=== PATIENT | female | born 1945 | race Caucasian/White ===

== ENCOUNTER 2020-02-11 15:44 | Outpatient (CLI) | payer MEDICARE, SELFPAY ==
--- NOTE | ~2020-02-11 | CT_ITS ---
EXAMINATION: CT brain wo con DATE: 02/11/2020 16:14 INDICATION: Traumatic injury of head TECHNIQUE: Computed tomography (CT) of the head was performed without intravenous contrast. The mA wa s adjusted according to patient size. Iterative reconstruction technique was employed. Exam dose: 60 5.33 mGy-cm total exam DLP. COMPARISON: 09/04/2018 CT brain FINDINGS: Vertebral artery and bilateral carotid siphon internal carotid artery calcifications. There is nonspecific diminished attenuation of the cerebral white matter, likely due to chronic small vessel ischemic changes. There is central and cortical cerebral atrophy and cerebellar atrophy. No intracranial mass lesion or hemorrhage or cerebrovascular accident is evident. No midline shift or mass effect. No subdural or epidural hematoma. No fracture or bone destruction of the cranial vault. IMPRESSION: Cerebral atherosclerosis and chronic small vessel ischemic changes of the cerebral white matter Volume loss of the cerebrum and cerebellum, which is not substantially different than on 09/04/2018 No acute intracranial finding Reviewed, dictated and finalized at [facility]. Reviewed, dictated and finalized at [facility]. IMPRESSION: Cerebral atherosclerosis and chronic small vessel ischemic changes of the cerebral white matter Volume loss of the cerebrum and cerebellum, which is not substantially differen t than on 09/04/2018 No acute intracranial finding
== END 2020-02-11 15:45 | disposition home or self-care (01) ==
PROVIDERS: PCP Internal Medicine; Visit Provider Internal Medicine
DX: S09.90XA Unspecified injury of head, initial encounter (principal); R47.89 Other speech disturbances; I67.2 Cerebral atherosclerosis
CPT/HCPCS: 70450

== ENCOUNTER 2020-03-09 12:43 | Observation (INO) | payer MEDICARE, SELFPAY ==
[2020-03-09] VITALS (9 sets, daily range): BP systolic 119–152; BP diastolic 53–89; PULSE 67–78; RESP 14–20; TEMP 36.4–37.1; O2SAT 95–100; BMI 18.7
--- NOTE | ~2020-03-09 | CT_ITS ---
EXAMINATION: CT brain wo con DATE: 03/09/2020 16:00 INDICATION: Increasing confusion, lethargy, weakness. Altered mental state. TECHNIQUE: Computed tomography (CT) of the head was performed without intravenous contrast. The mA wa s adjusted according to patient size. Iterative reconstruction technique was employed. Exam dose: 60 5.33 mGy-cm total exam DLP. COMPARISON: 02/11/2020 CT abdomen noncontrast brain examination FINDINGS: Again noted are vertebral and bilateral carotid siphon and supraclinoid internal carotid ar connie calcifications. There is nonspecific diminished attenuation of the cerebral white matter, likely due to chronic small vessel ischemic changes. There is central and cortical cerebral atrophy and cerebellar atrophy. No intracranial mass lesion or hemorrhage or cerebrovascular accident. No midline shift or mass effec t. No subdural or epidural hematoma. No fracture or bone destruction of the cranial vault. Included paranasal sinuses and mastoid air cell s are normally developed and aerated. IMPRESSION: Cerebral atherosclerosis No acute intracranial finding Reviewed, dictated and finalized at [facility]. Reviewed, dictated and finalized at [facility].
--- NOTE | ~2020-03-09 | XR_ITS ---
EXAMINATION: XR chest 2V DATE: 03/09/2020 16:13 INDICATION: Transient alteration of awareness TECHNIQUE: AP and lateral views of the chest are obtained. COMPARISON: 07/11/2018 FINDINGS: The lungs are free of acute opacities. There is no pleural effusion or pneumothorax. The ca rdiomediastinal silhouette is normal. There are bridging osteophytes at multiple levels in the spine, consistent with diffuse idiopathic skeletal hyperostosis (DISH). Changes of mesh ventral hernia repa ir are noted in the upper abdomen. IMPRESSION: 1. No acute cardiopulmonary abnormality. Reviewed, dictated and finalized at location [facility].
--- NOTE | 2020-03-09 12:54 | ECG_ITS ---
Measurements Intervals [place] Rate: 69 P: 54 IN: 169 QRS: -34 QRSD: 108 T: -11 QT: 388 QTc: 417 Interpretive Statements SINUS RHYTHM LEFT AXIS DEVIATION DELAYED PRECORDIAL R/S TRANSITION BORDERLINE T WAVE ABNORMALITY- INFERIOR LEADS BASELINE ARTIFACT- I, II, III, AVR, AVL, AVF, V1-V2 BORDERLINE ECG Electronically Signed On 03-09-2020 14:49:57 CDT by Ambrocio Nicole D.O.
[2020-03-09 13:15] LABS: Basophils Percent Auto 0.6 % (0.2-1.2); Eosinophils Absolute Auto 0.1 K/mm3 (0-0.3); Eosinophils Percent Auto 1.2 % (0-4.4); Hematocrit 43.8 % (37.0-47.0); Hemoglobin 14.7 g/dL (12.0-15.0); Immature Granulocyte Absolute 0.03 K/mm3 (0.00-0.031); Immature Granulocyte Percent A 0.5 % (0-0.5); Lymphocytes Absolute Auto 2.39 K/mm3 (0.9-3.2); Lymphocytes Percent Auto 36.7 % (18.3-44.2); Mean Corpuscular HGB Conc 33.6 g/dl (32-36); Mean Corpuscular Hemoglobin 33.9 pg (26-34); Mean Corpuscular Volume 101.2 fl (80-100); Mean Platelet Volume 10.3 fl (7.4-10.4); Monocytes Absolute Auto 0.4 K/mm3 (0.1-0.6); Monocytes Percent Auto 6.4 % (2.6-8.5); Neutrophils Absolute Auto 3.6 K/mm3 (1.3-6.7); Neutrophils Percent Auto 54.6 % (45.5-73.1); Platelet Count Result 195 k/mm3 (150-375); Red Blood Count 4.33 M/mm3 (4.2-5.4); Red Cell Distribution Width 12.9 % (11.5-14.5); White Blood Count 6.5 K/mm3 (4.5-10.0)
[2020-03-09 13:26] LABS: Add Urine Microscopic? YES; Appearance Urine Clear (Clear); Bilirubin Urine Negative (Negative); Blood Urine Negative (Negative); Color Urine Yellow (Yellow); Glucose Urine UA 1+ mg/dL (Negative); Ketones Urine Negative (Negative); Leukocyte Esterase Ur Negative LEU/UL (Negative); Mucus Urine Rare /lpf; Nitrate Urine Negative (Negative); Protein Urine Negative (Negative); RBC Urine 0-2 /hpf (0-2); Specific Grav Ur 1.016 (1.001-1.035); Squamous Epithelial Cell Urine Rare /hpf (Few); Urobilinogen Urine Negative mg/dL (<2.0); WBC Urine 0-3 /hpf
--- NOTE | 2020-03-09 13:54 | PC.NURSE ---
Patient is awake and alert. She is able to tell me her name, birthday, and that she is at a hospital at this time. She is not oriented to day or date. She is unable to answer questions as to last time eating, last time using bathroom, etc. Patient was brought in by a neighbor who tells me that she has been staying with the patient since Monday. She reports that, during this time, the patient has been having some increasing weakness and confusion, decreased PO intake, and has been sleeping for long periods of time. She reports that the patient was unable to comprehend how to use a walker. Additionally she tells me that the patient is unable to care for herself or provided for her basic daily requirements by herself. During assessment it was noted that the patient was having difficulty with simple directions. She was unable to understand what to do when instructed to straighten her arms. When checking nursing home manager strength, multiple attempts were required before patient understood what to do and she was unable to follow directions to check leg strength. Patient was placed on bed alarm because her friend did report that the patient likes to wander around .
[2020-03-09 14:23] LABS: Alanine Aminotransferase 7 U/L (4-35); Albumin Level 4.4 g/dL (3.5-5.1); Alkaline Phosphatase 56 U/L (38-126); Aspartate Amino Transferase 23 U/L (14-36); Bilirubin,Total 0.6 mg/dL (0.2-1.3); Blood Urea Nitrogen 13 mg/dL (7-17); Calcium 9.6 mg/dL (8.4-10.2); Carbon Dioxide 32 mmol/L (22-30); Chloride 99 mmol/L (98-107); Estimated CRCL calculation 40 ml/min; Estimated Glomerular Filt Rate > 60; Glucose 76 mg/dL (65-105); Potassium 4.4 mmol/L (3.4-5.0); Sodium 138 mmol/L (137-145)
--- NOTE | 2020-03-09 15:45 | ED.AMS ---
HPI - Altered Mental Status General Chief Complaint: Altered Mental Status Stated Complaint: Not Eating or Drinking Time Seen by Provider: 03/09/20 15:37 Source: patient Mode of arrival: EMS Limitations: altered mental status History of Present Illness HPI narrative: This patient is a 74 year old female who has been referred to ED by PCP Dr. Charles due to altered mental status. She has history of dementia and she has been at home by herself due to 's hospitalization. It is reported that patient is more confused than usual and she has not eaten since yesterday. Patient is oriented to self and she has no complaints. MD complaint: altered mental status Related Data Home Medications Medication Instructions Recorded Confirmed apixaban [Eliquis] mg 03/09/20 lamotrigine 03/09/20 levothyroxine 03/09/20 nortriptyline 03/09/20 pravastatin 03/09/20 valproic acid PO 03/09/20 Allergies Allergy/AdvReac Type Severity Reaction Status Date / Time No Known Allergies Allergy Unknown Verified 03/09/20 13:32 Review of Systems Review of Systems: All systems reviewed & are unremarkable except as noted in HPI and below Constitutional: Constitutional: Reports chills and Denies fever(s) Cardiovascular: Cardiovascular: Denies chest pain Respiratory: Respiratory: Denies cough and Denies dyspnea Gastrointestinal: Gastrointestinal: Denies abdominal pain, Denies nausea and Denies vomiting Neurologic: Denies headache(s) and Denies weakness PMFSH Past Medical History Medical History (Updated 03/09/20 @ 20:57 by Nayeli Sin MD) Hypertension Hypothyroid TIA (transient ischemic attack) Surgical History Surgical History (Updated 03/09/20 @ 20:56 by Nayeli Sin MD) History of bilateral knee replacement Hx of appendectomy Hx of cholecystectomy Hx of tonsillectomy Social History Social History (Updated 03/09/20 @ 20:56 by Nayeli Sin MD) Additional living arrangements comments: normally lives with but he is hospitalized. Gender identity (if verbalized by the patient): Female Exam Narrative: Exam Narrative: GENERAL: Well-appearing, well-nourished, and in no acute distress. HEAD: Normocephalic, atraumatic EYES: PERRLA and EOMI, conjunctiva clear without discharge EARS: TM's clear bilaterally without erythema or dullness NOSE: Nares clear, no rhinorrhea or epistaxis THROAT:Mucous membranes moist, Oropharynx normal without erythema, exudate, peritonsillar swelling or fluctuance NECK: Supple, without lymphadenopathy or mass RESPIRATORY: No respiratory distress, Airway patent, Respirations non-labored, Clear to auscultation without rales, rhonchi or wheeze HEART: Regular rate and rhythm. No murmur heard. Normal peripheral pulses. ABDOMEN: Soft, nontender, nondistended, normal active bowel sounds. No masses. No rebound or guarding, No organomegaly. EXTREMITIES: No edema, normal strength with full range of motion. SKIN: Warm, dry, normal color without rash NEURO: Alert and oriented to self. CN 2-12 grossly intact. No focal deficits. PSYCH: Normal mood and affect. Course Reevaluation(s) Reevaluation #1: Nursing staff states patient's neighbor called her PCP . Patient's is hospitalized and he normally cares for her. Patient seems to be unable to care for her self at home. Date: 03/09/20 Time: 17:13 Consultations Consultation #1: I have discussed with Tanya Salcido who accepts patient to service observation under Dr. Ayoub. Date: 03/09/20 Time: 17:14 Vital Signs Vital signs: Vital Signs Temperature 98.8 F 03/09/20 12:49 Pulse Rate 73 03/09/20 12:49 Respiratory Rate 16 03/09/20 12:49 Blood Pressure 152/74 H 03/09/20 12:49 Pulse Oximetry 97 03/09/20 12:49 Temperature 98.2 F 03/09/20 19:26 Pulse Rate 70 03/09/20 19:26 Respiratory Rate 16 03/09/20 19:26 Blood Pressure 133/53 L 03/09/20 19:26 Pulse Oximetry 100 03/09/20 1
--- NOTE | 2020-03-09 17:40 | PC.NURSE ---
Meal order placed for regular diet.
--- NOTE | 2020-03-09 18:50 | ADMGEN ---
This patient, Mouna Johnson, was admitted to Medical Room 346-. Patient/family oriented to hospital policies and general routines including ID bracelet, bed and alarms, visiting hours, pain management, procedures, bathroom and other care routines, personal items, smoking policy, room service/diet, and visiting hours. Valuables list has been completed. Information on how to activate the Rapid Response Team has been discussed. Patient/Family are encouraged to report perceived risks to care and to ask questions if they do not understand what they are told or what they should do.
--- NOTE | 2020-03-09 20:30 | PM.IMHP ---
H&P: HPI History of Present Illness Chief complaint: Confusion Narrative: Mouna Johnson is a 74-year-old female with dementia, seizures, hypothyroidism, and history of pulmonary embolism on apixaban who presented to the emergency department earlier this afternoon from home for evaluation of increasing confusion. She is alert oriented to self only and can provide no meaningful history. As such, all of this history is obtained via a review of her electronic medical record and discussions with her . Her has been hospitalized, and he is apparently has the patient's primary residential subcontractor. They do have somebody staying with the patient at home, who reports that over the past 24 hours the patient has not eaten a meal and has seemed increasingly confused and weak. Workup in the emergency department was relatively unremarkable, but unfortunately the patient does not have anybody to care for her at home and thus she is being admitted for respite care. At the time my evaluation, she is alert and pleasant. She has no complaints. Review of Systems Review of Systems: Narrative: Twelve systems were reviewed but are very limited given her severe short-term memory loss. She denies pain. She has not had fever or chills. No chest pain or shortness of breath. No nausea or vomiting. No abdominal pain. She denies dysuria. Except as documented, all other systems were reviewed and are negative. 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 She may take lamotrigine and valproic acid for her dementia. TIA (transient ischemic attack) Surgical History Surgical History (Updated 03/09/20 @ 22:20 by Tanya Salcido PA-C) History of appendectomy History of bilateral knee replacement History of cholecystectomy History of hysterectomy (~1988) History of inguinal hernia repair (~2006) History of tonsillectomy Status post gastroplasty Darya-Belsey procedure many years ago. Family History Family History (Updated 03/09/20 @ 22:21 by Tanya Salcido PA-C) Other Acute myocardial infarction Congestive heart failure Hypertension Social History Social History (Updated 03/09/20 @ 22:23 by Tanya Salcido PA-C) Social History: The patient is and lives with her in [place]. They do have a residential subcontractor that comes to the home sometimes. They are in the process of attempting to sell their home to move to assisted living. They have 1 daughter, Yadi Barreto, who lives in [place]. Yadi is her healthcare power of commercial attorney, and the patient is listed as a full code. 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 No alcohol, tobacco, or drug use. Additional living arrangements comments: Meds Home Medications and Allergies Home Medications Medication Instructions Recorded Confirmed Type apixaban [Eliquis] mg 03/09/20 History lamotrigine 03/09/20 History levothyroxine 03/09/20 History nortriptyline 03/09/20 History pravastatin 03/09/20 History valproic acid PO 03/09/20 History Allergies Allergy/AdvReac Type Severity Reaction Status Date / Time No Known Allergies Allergy Unknown Verified 03/09/20 13:32 Vital Signs Vital Signs - 24 hr 03/09/20 12:49 03/09/20 13:14 03/09/20 13:48 Temperature 98.8 F 97.6 F Pulse Rate 73 70 Respiratory Rate 16 15 16 Blood Pressure 152/74 H 143/70 H Pulse Oximetry 97 98 99 03/09/20 14:05 03/09/20 16:53 03/09/20 18:30 Temperature 97.9 F Pulse Rate 67 78 77 Respiratory Rate 14 20 18 Blood Pressure 136/89 146/71 H 119/63 Pulse Oximetry 96 95 99 03/09/20 19:26
[2020-03-10] VITALS: PULSE 61
[2020-03-10 04:00] VITALS: PULSE 61
[2020-03-10 09:00] VITALS: PULSE 77
[2020-03-10 09:30] LABS: Thyroid Stimulating Hormone Reflex > 100.000 uIU/mL (0.465-4.68)
[2020-03-10 09:52] LABS: Blood Urea Nitrogen 13 mg/dL (7-17); Calcium 9.4 mg/dL (8.4-10.2); Carbon Dioxide 31 mmol/L (22-30); Chloride 100 mmol/L (98-107); Estimated CRCL calculation 38 ml/min; Estimated Glomerular Filt Rate > 60; Glucose 72 mg/dL (65-105); Potassium 4.3 mmol/L (3.4-5.0); Sodium 137 mmol/L (137-145)
[2020-03-10 10:01] LABS: Free T4 Free Thyroxine Reflex 0.84 ng/dL (0.78-2.19)
--- NOTE | 2020-03-10 10:48 | PCSTNOTE ---
Please refer to the Bedside Swallow Evaluation in the EMR.
[2020-03-10 13:00] VITALS: PULSE 70
[2020-03-10 13:45] LABS: Total Triiodothyronine (T3) 0.87 NG/ML (0.97-1.69)
[2020-03-10 14:10] VITALS: BP 134/63; PULSE 74; RESP 14; TEMP 37.1; O2SAT 98
--- NOTE | 2020-03-10 15:34 | PM.DS ---
DS: Admitting Diagnosis Admitting Diagnosis Admitting Diagnosis: Alzheimer's disease, unspecified DS: Discharge Diagnosis Discharge Diagnosis (1) Alzheimer's dementia: Code(s): G30.9 - Alzheimer's disease, unspecified; F02.80 - Dementia in other diseases classified elsewhere without behavioral disturbance Status: Acute Assessment and Plan: Reports of increasing confusion, likely related to dementia. Patient is essentially being admitted for respite care. No evidence on labs or imaging to suggest underlying infection. Metabolic panel is also unremarkable. (2) Current use of prison anticoagulation: Code(s): Z79.01 - jail (current) use of anticoagulants Status: Acute Assessment and Plan: Due to history of DVT and pulmonary embolism. Continue apixaban. (3) Seizure: Code(s): R56.9 - Unspecified convulsions Status: Acute Assessment and Plan: Continue lamotrigine and valproic acid. History of seizures is poorly documented her medical records, and she may take these for behavioral disturbances. (4) Hypothyroidism: Code(s): E03.9 - Hypothyroidism, unspecified Status: Acute Assessment and Plan: Continue levothyroxine. Check TSH. DS: Summary Hospital Course Reason for hospitalization: Mouna Johnson is a 74-year-old female with dementia, seizures, hypothyroidism, and history of pulmonary embolism on apixaban who presented to the emergency department earlier this afternoon from home for evaluation of increasing confusion. She is alert oriented to self only and can provide no meaningful history. As such, all of this history is obtained via a review of her electronic medical record and discussions with her . Her has been hospitalized, and he is apparently has the patient's primary draw hand. They do have somebody staying with the patient at home, who reports that over the past 24 hours the patient has not eaten a meal and has seemed increasingly confused and weak. Workup in the emergency department was relatively unremarkable, but unfortunately the patient does not have anybody to care for her at home and thus she is being admitted for respite care. At the time my evaluation, she is alert and pleasant. She has no complaints. Hospital Course: Reports of increasing confusion, likely related to dementia. Patient is essentially being admitted for respite care. No evidence on labs or imaging to suggest underlying infection. Metabolic panel is also unremarkable. Patient is beind discharged home to under comfort care Status at Discharge Functional status at discharge: bed bound Overall status at discharge: patient is not back to baseline Time Spent with Patient Time attestation: Total time spent providing and/or coordinating discharge services: Time spent: Less than 30 minutes Exam Const: General: no acute distress and uncomfortable HENMT: General nose exam: Normal nares present Eyes: General: appearance normal, both eyes and all related structures Sclera: sclerae normal Neck: Neck: supple Resp: Effort & Inspection: normal respiratory effort Auscultation: clear to auscultation bilaterally Cardio: Rate: regular rate Rhythm: regular rhythm GI: GI Palp: Yes Soft to palpation Skin: General skin exam: normal color Neuro: Other: Severe dementia Extrem: General: normal to inspection Psych: Other: Severe dementia DS: Data Data Completed and Pending Labs on day of discharge: Labs from last 24 hours 03/10/20 03/10/20 03/10/20 07:11 07:11 07:11 Sodium Potassium Chloride Carbon Dioxide BUN Creatinine Estim Creat Clear Calc Estimated GFR Glucose Calcium TSH (Reflex)
[2020-03-10 17:00] VITALS: PULSE 75
== END 2020-03-10 17:18 | disposition home health service (06) ==
LOC: ANHED 17:17 → ANH3MED 18:09
PROVIDERS: Emergency Medicine; Physician Assistant; Admitting Provider Family Medicine; Emergency Provider General Practice; PCP Internal Medicine; Visit Provider Family Medicine
DX: G30.9 Alzheimer's disease, unspecified (principal); F02.80 Dementia in other diseases classified elsewhere, unspecified severity, without behavioral disturbance, psychotic disturbance, mood disturbance, and anxiety; R56.9 Unspecified convulsions; E03.9 Hypothyroidism, unspecified; I10 Essential (primary) hypertension; F41.8 Other specified anxiety disorders; K21.9 Gastro-esophageal reflux disease without esophagitis; E78.5 Hyperlipidemia, unspecified; M19.90 Unspecified osteoarthritis, unspecified site; Z75.5 Holiday relief care; Z79.01 Long term (current) use of anticoagulants; Z79.899 Other long term (current) drug therapy; Z86.711 Personal history of pulmonary embolism; Z86.718 Personal history of other venous thrombosis and embolism; Z86.73 Personal history of transient ischemic attack (TIA), and cerebral infarction without residual deficits; Z96.653 Presence of artificial knee joint, bilateral
CPT/HCPCS: 36415; 51701; 70450; 71046; 80048; 80053; 81001; 84439; 84443; 84480; 85025; 92610; 93005; 99285; G0378

== ENCOUNTER 2020-10-26 12:07 | Emergency (ER) | payer MEDICARE, SELFPAY ==
--- NOTE | ~2020-10-26 | XR_ITS ---
XR foot RT min 3V DATE: 10/26/2020 12:37 INDICATION: Stubbed toes 3-4 days ago. Right foot distal metatarsal and toe pain TECHNIQUE: 4 views COMPARISON: None FINDINGS: Diffuse osteopenia. There is prominent posterior calcaneal enthesopathy. No fracture or dislocation, periosteal reaction or bone destruction is detected. There is mild joint space narrowing at the first metatarsophalangeal joint. Metatarsal artery calcifications are noted. IMPRESSION: No fracture is detected Reviewed, dictated and finalized at location [facility]. [employer] IMPRESSION: No fracture is detected
[2020-10-26 12:17] VITALS: BP 129/63; PULSE 64; RESP 16; TEMP 36.4; O2SAT 100
--- NOTE | 2020-10-26 12:36 | ED.LOWEXIN ---
HPI - Extremity Injury (Lower) General Chief Complaint: Extremity Injury, Lower Stated Complaint: right foot pain Source: patient and RN notes reviewed Limitations: no limitations History of Present Illness HPI Narrative: The dementia patient,who walks in her home and brought in by video manager, presents with foot pain. Consent given by spouse at home, and caregiver,note that about a half a week ago the patient stubbed her foot on home furnishings and complains of distal middle metatarsal pain that is mild, worse with motion, better at rest. She was seen and released by pattern clerk and she desire an x-ray ; no bleeding, deformity, and initial swelling has improved [ she is on eliquis]. Related Data Home Medications Medication Instructions Recorded Confirmed apixaban [Eliquis] 2.5 mg PO BID 10/26/20 10/26/20 lamotrigine 100 mg PO DAILY 10/26/20 10/26/20 levothyroxine 75 mcg PO DAILY 10/26/20 10/26/20 pravastatin 40 mg PO DAILY 10/26/20 10/26/20 valproic acid 250 mg PO BID 10/26/20 10/26/20 Allergies Allergy/AdvReac Type Severity Reaction Status Date / Time No Known Allergies Allergy Verified 10/26/20 12:31 Review of Systems Review of Systems: Narrative: General/Constitutional: No weight loss,fever Eyes: N0: Redness,discharge Ears/Nose/Throat: No: Epistaxis,ear discharge Respiratory: Denies: Hemoptysis Gastrointestinal: No Vomiting, Bleeding-rectal Skin: No Lumps, eruption Neurologic: No Focal Weakness,Sz Hematologic: Denies: Petechiae/Purpura Psychiatric: No: Suicida ideationl All Other Systems: Reviewed and Negative PMFSH Comments At time of signature, agree with nursing past medical, surgical, social and family history. There is no relevant family history pertinent to the presenting complaint Exam Narrative: Exam Narrative: General Appearance: Aged/ mildly demented appearing,, No distress, Conjunctiva clear Ears: External ear normal, Auditory canal normal Nose: Normal nose, Nares clear Mouth/Throat: Normal appearing, Normal lips, Supple Respiratory: Airway patent, No respiratory distress Skin: Warm, Dry, Normal color; bilateral dependent edema L>>>R MS ankle: Normal strength (mostly intact, limited flexion/extension by pain), Tenderness (distal metatarsals & laterally, with mild decreased ROM), scant swelling, Other (no anterior drawer, no collateral laxity, no Achilles tenderness, no fifth MT tenderness) Neurological: Alert and awake ,, Normal affect Course Course Emergency Course: Films visualized, interpreted by radiologist, agree, age-related normal -see report Vital Signs Vital signs: Vital Signs Temperature 97.5 F L 10/26/20 12:17 Pulse Rate 64 10/26/20 12:17 Respiratory Rate 16 10/26/20 12:17 Blood Pressure 129/63 10/26/20 12:17 Pulse Oximetry 100 10/26/20 12:17 Temperature 97.5 F L 10/26/20 12:17 Pulse Rate 64 10/26/20 12:17 Respiratory Rate 16 10/26/20 12:17 Blood Pressure 129/63 10/26/20 12:17 Pulse Oximetry 100 10/26/20 12:17 Discharge Plan Discharge Clinical Impression: Contusion of foot, right Qualifiers: Encounter type: initial encounter Qualified Code(s): S90.31XA - Contusion of right foot, initial encounter Right ankle sprain Qualifiers: Encounter type: initial encounter Involved ligament of ankle: unspecified ligament Qualified Code(s): S93.401A - Sprain of unspecified ligament of right ankle, initial encounter Degenerative arthritis of ankle Qualifiers: Osteoarthritis type: primary Laterality: unspecified laterality Qualified Code(s): M19.079 - Primary osteoarthritis, unspecified ankle and foot Patient Disposition: Home, Self-Care Condition: Improved Instructions: Ankle Sprain (ED) Additional Instructions: You may take your home pain medicines, like Tylenol Wear Geoff/ wraps as discussed Prescriptions: No Action pravastatin 40 mg tablet 40 mg PO DAILY RF: 0 valproic acid 250 mg capsule 250 mg PO BID R
== END 2020-10-26 13:07 | disposition home or self-care (01) ==
PROVIDERS: Emergency Provider Emergency Medicine
DX: S90.31XA Contusion of right foot, initial encounter (principal); W22.03XA Walked into furniture, initial encounter; S93.401A Sprain of unspecified ligament of right ankle, initial encounter; M19.079 Primary osteoarthritis, unspecified ankle and foot; E78.00 Pure hypercholesterolemia, unspecified; E03.9 Hypothyroidism, unspecified; F03.90 Unspecified dementia, unspecified severity, without behavioral disturbance, psychotic disturbance, mood disturbance, and anxiety
CPT/HCPCS: 73630; 99213; G0463

== ENCOUNTER 2020-10-27 15:59 | Emergency (ER) | payer MEDICARE, SELFPAY ==
--- NOTE | ~2020-10-27 | US_ITS ---
EXAMINATION: US venous doppler [facility] DATE: 10/27/2020 16:42 INDICATION: Left lower limb swelling. TECHNIQUE: Grayscale ultrasound images without and with compression and Doppler ultrasound images of the left lower extremity veins were obtained. COMPARISON: None. FINDINGS: The visualized portions of left common femoral vein, profunda (deep) femoral vein, femoral vein, popl iteal vein, peroneal veins, posterior tibial veins, and greater saphenous vein outflow are patent. IMPRESSION: 1. No deep venous thrombosis. Reviewed, dictated and finalized at location A. INSPECTOR
[2020-10-27 16:02] VITALS: BP 158/80; PULSE 63; RESP 18; TEMP 36.7; O2SAT 100
--- NOTE | 2020-10-27 16:10 | ED.EXTPRO ---
HPI - Extremity Problem General Chief complaint: Extremity Problem,Nontraumatic Stated complaint: swelling to legs Time Seen by Provider: 10/27/20 16:02 Source: patient and family Mode of arrival: ambulatory Limitations: no limitations History of Present Illness HPI Narrative: A 75-year-old female presents to the emergency department today complaining of extremity swelling in her left lower extremity. Patient was recently seen at an outside urgent care center where she actually was treated for a sprain of the ipsilateral ankle. There they noticed that she was having swelling in this extremity. It has been there for quite some time. Patient does note that it is sometimes bothersome. She does take Eliquis for history of DVT but cannot recall when or where that last DVT was. Related Data Home Medications Medication Instructions Recorded Confirmed Eliquis 2.5 mg PO DAILY 03/09/20 03/10/20 lamotrigine 100 mg PO DAILY 03/09/20 03/10/20 levothyroxine 75 mcg PO DAILY 03/09/20 03/10/20 pravastatin 40 mg PO DAILY 03/09/20 03/10/20 valproic acid 250 mg PO BID 03/09/20 03/10/20 Allergies Allergy/AdvReac Type Severity Reaction Status Date / Time No Known Allergies Allergy Unknown Verified 10/27/20 16:16 Review of Systems Review of Systems: Narrative: CONSTITUTIONAL: Denies fever, chills, or sweats. EYES: Denies visual changes, redness, or discharge. ENT: Denies rhinorrhea, congestion, sore throat, or otalgia. CARDIOVASCULAR: Denies chest pain, palpitations, or edema. RESPIRATORY: Denies cough or dyspnea. GASTROINTESTINAL: Denies abdominal pain, nausea, vomiting, or diarrhea. GENITOURINARY: Denies dysuria or hematuria. SKIN: Denies rash or itching. MUSCULOSKELETAL: Denies back pain, joint pain, or myalgia. Endorses swelling in the left lower extremity NEUROLOGIC: Denies headache, numbness, dizziness, or weakness. PSYCHIATRIC: Denies anxiety or depression. All systems reviewed & are unremarkable except as noted in HPI and below PMFSH Past Medical History Medical History Alzheimer's dementia Current use of fci anticoagulation Depression with anxiety DVT (deep venous thrombosis) (~2005) Essential hypertension GERD (gastroesophageal reflux disease) Hyperlipidemia Hypothyroidism Osteoarthritis Pulmonary embolism (~2013) Seizure This is poorly documented in her medical record. She may take lamotrigine and valproic acid for her dementia. TIA (transient ischemic attack) Surgical History Surgical History History of appendectomy History of bilateral knee replacement History of cholecystectomy History of hysterectomy (~1988) History of inguinal hernia repair (~2006) History of tonsillectomy Status post gastroplasty Darya-Belsey procedure many years ago. Family History Family History Other Acute myocardial infarction Congestive heart failure Hypertension Social History Social History Social History: The patient is and lives with her in [place]. They do have a pneumatic system conveyor operator that comes to the home sometimes. They are in the process of attempting to sell their home to move to assisted living. They have 1 daughter, Yadi Barreto, who lives in [place]. Yadi is her healthcare power of criminal defense attorney, and the patient is listed as a full code. 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 No alcohol, tobacco, or drug use. Smoking status: Never smoker Alcohol intake: never Substance use: never Substance use type: does not use Additional living arrangements comments: Spiritual care concerns: No Exam Narrative: Exam Narrative: GENERAL: Well-appearing, well-nourished, and in no acute distress. HEAD: Normocephalic, atraumatic. EYES: PERRLA and EOMI. ENT: Nares clear, no rhinor
--- NOTE | 2020-10-27 16:15 | PC.NURSE ---
Patient to ultrasound via stretcher at this time
[2020-10-27 16:52] LABS: Basophils Percent Auto 0.5 % (0.2-1.2); Eosinophils Absolute Auto 0.1 K/mm3 (0-0.3); Eosinophils Percent Auto 2.2 % (0-4.4); Hemoglobin 12.5 g/dL (12.0-15.0); Immature Granulocyte Absolute 0.01 K/mm3 (0.00-0.031); Immature Granulocyte Percent A 0.2 % (0-0.5); Lymphocytes Absolute Auto 1.61 K/mm3 (0.9-3.2); Lymphocytes Percent Auto 27.2 % (18.3-44.2); Mean Corpuscular HGB Conc 33.8 g/dl (32-36); Mean Corpuscular Hemoglobin 34.7 pg (26-34); Mean Corpuscular Volume 102.8 fl (80-100); Mean Platelet Volume 9.9 fl (7.4-10.4); Monocytes Absolute Auto 0.4 K/mm3 (0.1-0.6); Monocytes Percent Auto 6.6 % (2.6-8.5); Neutrophils Absolute Auto 3.7 K/mm3 (1.3-6.7); Neutrophils Percent Auto 63.3 % (45.5-73.1); Platelet Count Result 164 k/mm3 (150-375); Red Cell Distribution Width 13.2 % (11.5-14.5); White Blood Count 5.9 K/mm3 (4.5-10.0)
[2020-10-27 17:05] LABS: Anion Gap 8 mmol/L (8-16); Blood Urea Nitrogen 18 mg/dL (7-17); Calcium 9.5 mg/dL (8.4-10.2); Carbon Dioxide 27 mmol/L (22-30); Chloride 103 mmol/L (98-107); Estimated Glomerular Filt Rate > 60; Glucose 84 mg/dL (65-105); Potassium 4.2 mmol/L (3.4-5.0); Sodium 138 mmol/L (137-145)
== END 2020-10-27 17:42 | disposition home or self-care (01) ==
PROVIDERS: Emergency Provider Emergency Medicine; PCP Internal Medicine
DX: R60.0 Localized edema (principal); G30.9 Alzheimer's disease, unspecified; F02.80 Dementia in other diseases classified elsewhere, unspecified severity, without behavioral disturbance, psychotic disturbance, mood disturbance, and anxiety; Z79.01 Long term (current) use of anticoagulants; F41.9 Anxiety disorder, unspecified; F32.9 Major depressive disorder, single episode, unspecified; I10 Essential (primary) hypertension; K21.9 Gastro-esophageal reflux disease without esophagitis; E78.5 Hyperlipidemia, unspecified; E03.9 Hypothyroidism, unspecified; M19.90 Unspecified osteoarthritis, unspecified site
CPT/HCPCS: 36415; 80048; 85025; 85610; 93971; 99284

== ENCOUNTER 2021-01-15 21:31 | Emergency (ER) | payer MEDICARE, SELFPAY ==
[2021-01-15 21:32] VITALS: BP 141/68; PULSE 97; RESP 18; TEMP 36.4; O2SAT 99
--- NOTE | 2021-01-15 22:28 | ECG_ITS ---
Measurements Intervals [place] Rate: 54 P: -35 CT: 129 QRS: -28 QRSD: 106 T: -31 QT: 451 QTc: 428 Interpretive Statements SINUS BRADYCARDIA BORDERLINE R WAVE PROGRESSION, ANTERIOR LEADS BORDERLINE T WAVE ABNORMALITY- ANT/INF LEADS BASELINE ARTIFACT- I, II, III, AVR, AVL, AVF, V1 BORDERLINE ECG Electronically Signed On 01-16-2021 7:49:10 CDT by Ambrocio Nicole D.O.
--- NOTE | 2021-01-15 22:41 | ED.GENADULT ---
HPI - General Adult General Chief complaint: Unspecified Stated complaint: not feeling well Time Seen by Provider: 01/15/21 22:02 Source: patient, family, EMS and RN notes reviewed Mode of arrival: EMS Limitations: dementia History of Present Illness HPI narrative: Patient is 75 years old white female brought to the emergency room by ambulance with her because she fell while going to the bathroom. Did not use a walker. No loss of consciousness or any injury. EMT advised the to take the patient to the emergency room for checkup. Dad but denied that the patient have any fever, chills, nausea, vomiting, chest pain, shortness of breath, headache, diarrhea or urinary symptoms. Related Data Home Medications Medication Instructions Recorded Confirmed Eliquis 2.5 mg PO DAILY 03/09/20 03/10/20 lamotrigine 100 mg PO DAILY 03/09/20 03/10/20 levothyroxine 75 mcg PO DAILY 03/09/20 03/10/20 pravastatin 40 mg PO DAILY 03/09/20 03/10/20 valproic acid 250 mg PO BID 03/09/20 03/10/20 Allergies Allergy/AdvReac Type Severity Reaction Status Date / Time No Known Allergies Allergy Unknown Verified 01/15/21 21:42 Review of Systems Review of Systems: Narrative: CONSTITUTIONAL: Denies fever, chills, or sweats. EYES: Denies visual changes, redness, or discharge. ENT: Denies rhinorrhea, congestion, sore throat, or otalgia. CARDIOVASCULAR: Denies chest pain, palpitations, or edema. RESPIRATORY: Denies cough or dyspnea. GASTROINTESTINAL: Denies abdominal pain, nausea, vomiting, or diarrhea. GENITOURINARY: Denies dysuria or hematuria. SKIN: Denies rash or itching. MUSCULOSKELETAL: Denies back pain, joint pain, or myalgia. NEUROLOGIC: Denies headache, numbness, or weakness. PSYCHIATRIC: Denies anxiety or depression. [facility] Past Medical History Medical History Alzheimer's dementia Current use of intermediate project manager anticoagulation Depression with anxiety DVT (deep venous thrombosis) (~2005) Essential hypertension GERD (gastroesophageal reflux disease) Hyperlipidemia Hypothyroidism Osteoarthritis Pulmonary embolism (~2013) Seizure This is poorly documented in her medical record. She may take lamotrigine and valproic acid for her dementia. TIA (transient ischemic attack) Surgical History Surgical History History of appendectomy History of bilateral knee replacement History of cholecystectomy History of hysterectomy (~1988) History of inguinal hernia repair (~2006) History of tonsillectomy Status post gastroplasty Darya-Belsey procedure many years ago. Family History Family History Other Acute myocardial infarction Congestive heart failure Hypertension Social History Social History Social History: The patient is and lives with her in [place]. They do have a negotiator that comes to the home sometimes. They are in the process of attempting to sell their home to move to assisted living. They have 1 daughter, Yaid Barreto, who lives in [place]. Yadi is her healthcare power of senior attorney, and the patient is listed as a full code. 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 No alcohol, tobacco, or drug use. Smoking status: Never smoker Alcohol intake: never Substance use: never Substance use type: does not use Additional living arrangements comments: Spiritual care concerns: No Exam Narrative: Exam Narrative: General appearance: Well-developed, well-nourished, at the bedside Skin: Dry skin Head: Normocephalic, nontraumatic Eyes: Clear conjunctiva ENT: Oropharynx normal, ears normal, nose normal Neck: Supple, nontender Chest and respiratory: Airway patent, no respiratory distress, no accessory muscle use Heart: Regular rate/rhythm Abdomen: Soft, nontender, no orga
[2021-01-15 22:54] LABS: Basophils Percent Auto 0.4 % (0.2-1.2); Eosinophils Absolute Auto 0.1 K/mm3 (0-0.3); Eosinophils Percent Auto 0.7 % (0-4.4); Hematocrit 37.9 % (37.0-47.0); Hemoglobin 12.8 g/dL (12.0-15.0); Immature Granulocyte Absolute 0.05 K/mm3 (0.00-0.031); Immature Granulocyte Percent A 0.7 % (0-0.5); Lymphocytes Absolute Auto 1.37 K/mm3 (0.9-3.2); Lymphocytes Percent Auto 19.4 % (18.3-44.2); Mean Corpuscular HGB Conc 33.8 g/dl (32-36); Mean Corpuscular Volume 100.8 fl (80-100); Mean Platelet Volume 9.9 fl (7.4-10.4); Monocytes Absolute Auto 0.4 K/mm3 (0.1-0.6); Monocytes Percent Auto 5.2 % (2.6-8.5); Neutrophils Absolute Auto 5.2 K/mm3 (1.3-6.7); Neutrophils Percent Auto 73.6 % (45.5-73.1); Platelet Count Result 153 k/mm3 (150-375); Red Blood Count 3.76 M/mm3 (4.2-5.4); Red Cell Distribution Width 13.3 % (11.5-14.5); White Blood Count 7.1 K/mm3 (4.5-10.0)
[2021-01-15 23:07] LABS: Alanine Aminotransferase 18 U/L (4-35); Albumin Level 3.8 g/dL (3.5-5.1); Alkaline Phosphatase 43 U/L (38-126); Anion Gap 6 mmol/L (8-16); Aspartate Amino Transferase 34 U/L (14-36); Bilirubin,Total 0.6 mg/dL (0.2-1.3); Blood Urea Nitrogen 15 mg/dL (7-17); Calcium 9.2 mg/dL (8.4-10.2); Carbon Dioxide 31 mmol/L (22-30); Chloride 104 mmol/L (98-107); Estimated CRCL calculation 37 ml/min; Estimated Glomerular Filt Rate 54; Glucose 99 mg/dL (65-105); Potassium 3.8 mmol/L (3.4-5.0); Sodium 141 mmol/L (137-145)
[2021-01-15 23:09] LABS: Add Urine Microscopic? YES; Appearance Urine Cloudy (Clear); Bacteria Urine Trace /hpf; Bilirubin Urine Negative (Negative); Blood Urine Negative (Negative); Color Urine Yellow (Yellow); Glucose Urine UA Negative (Negative); Ketones Urine Negative (Negative); Leukocyte Esterase Ur Negative LEU/UL (Negative); Mucus Urine Moderate /lpf; Nitrate Urine Negative (Negative); Protein Urine 1+ mg/dL (Negative); RBC Urine 0-2 /hpf (0-2); Specific Grav Ur 1.019 (1.001-1.035); Squamous Epithelial Cell Urine Rare /hpf (Few); Urobilinogen Urine Negative mg/dL (<2.0)
[2021-01-15 23:18] LABS: Troponin I < 0.012 ng/mL (0.000-0.034)
[2021-01-16 00:10] VITALS: BP 130/61; PULSE 65; RESP 18; O2SAT 99
== END 2021-01-16 00:12 | disposition home or self-care (01) ==
PROVIDERS: Emergency Provider Emergency Medicine; PCP Internal Medicine
DX: Z04.3 Encounter for examination and observation following other accident (principal); G30.9 Alzheimer's disease, unspecified; F02.80 Dementia in other diseases classified elsewhere, unspecified severity, without behavioral disturbance, psychotic disturbance, mood disturbance, and anxiety; K21.9 Gastro-esophageal reflux disease without esophagitis; I10 Essential (primary) hypertension; E78.5 Hyperlipidemia, unspecified; E03.9 Hypothyroidism, unspecified; M19.90 Unspecified osteoarthritis, unspecified site; Z86.711 Personal history of pulmonary embolism; Z86.718 Personal history of other venous thrombosis and embolism; Z86.73 Personal history of transient ischemic attack (TIA), and cerebral infarction without residual deficits; W18.30XA Fall on same level, unspecified, initial encounter; Z79.01 Long term (current) use of anticoagulants; R00.1 Bradycardia, unspecified; R94.31 Abnormal electrocardiogram [ECG] [EKG]
CPT/HCPCS: 36415; 51701; 80053; 81001; 84484; 85025; 93005; 99284

== ENCOUNTER 2021-04-09 09:54 | Emergency (ER) | payer MEDICARE, SELFPAY ==
--- NOTE | ~2021-04-09 | XR_ITS ---
EXAMINATION: XR chest 2V EXAM DATE: 04/09/2021 10:40 INDICATION: Shortness of breath, peripheral edema, HX: Hypertension, reflux. TECHNIQUE: Frontal and lateral projections of the chest obtained and reviewed. Comparison is made to prior examination from 03/09/2020. FINDINGS: Mild cardiomegaly. Moderate hyperinflation. Some old left rib fractures. No confluent cons olidation, pneumothorax or pleural effusion suspected. The bones are osteopenic. There are bony dege nerative changes. IMPRESSION: 1. Cardiomegaly. 2. Hyperinflation. Reviewed, dictated and finalized at location B.
[2021-04-09 09:58] VITALS: BP 130/65; PULSE 64; RESP 16; TEMP 36.8; O2SAT 99
--- NOTE | 2021-04-09 10:17 | ECG_ITS ---
Measurements Intervals [place] Rate: 63 P: 30 [place]: 196 QRS: -32 QRSD: 101 T: 6 QT: 404 QTc: 417 Interpretive Statements SINUS RHYTHM LEFT AXIS DEVIATION LOW QRS VOLTAGE IN PRECORDIAL LEADS INCOMPLETE RIGHT BUNDLE BRANCH BLOCK POOR R WAVE PROGRESSION, ANTERIOR LEADS BORDERLINE T WAVE ABNORMALITY- INFERIOR LEADS BASELINE ARTIFACT- I, II, AVR, AVL, V2, V4-V6 BORDERLINE ECG Electronically Signed On 04-09-2021 10:45:37 CDT by Ambrocio Nicole D.O.
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
[2021-04-09 11:48] VITALS: BP 141/81; PULSE 58; RESP 14; TEMP 36.6; O2SAT 98
[2021-04-09 12:23] VITALS: PULSE 54
--- NOTE | 2021-04-09 12:31 | ED.SOB ---
HPI - SOB/Dyspnea General Chief Complaint: Shortness of Breath/Dyspnea Stated Complaint: edema, sob Time Seen by Provider: 04/09/21 12:08 History of Present Illness HPI Narrative: Sent in by PCP for concerns about possible CHF. She has reportedly developed swelling in the bilateral feet and ankle over the past 3 days. Her had also noticed some irregular breathing. He feels that she was probably short of breath, but she did not complain of any shortness of breath. She has dementia and he is not sure she would be able to complain. Related Data Home Medications Medication Instructions Recorded Confirmed Eliquis 2.5 mg PO DAILY 03/09/20 03/10/20 lamotrigine 100 mg PO DAILY 03/09/20 03/10/20 levothyroxine 75 mcg PO DAILY 03/09/20 03/10/20 pravastatin 40 mg PO DAILY 03/09/20 03/10/20 valproic acid 250 mg PO BID 03/09/20 03/10/20 Allergies Allergy/AdvReac Type Severity Reaction Status Date / Time No Known Allergies Allergy Unknown Verified 01/15/21 21:42 Review of Systems Review of Systems: ROS unobtainable: Yes unobtainable due to mental status PMFSH Past Medical History Medical History Alzheimer's dementia Current use of prison anticoagulation Depression with anxiety DVT (deep venous thrombosis) (~2005) Essential hypertension GERD (gastroesophageal reflux disease) Hyperlipidemia Hypothyroidism Osteoarthritis Pulmonary embolism (~2013) Seizure This is poorly documented in her medical record. She may take lamotrigine and valproic acid for her dementia. TIA (transient ischemic attack) Surgical History Surgical History History of appendectomy History of bilateral knee replacement History of cholecystectomy History of hysterectomy (~1988) History of inguinal hernia repair (~2006) History of tonsillectomy Status post gastroplasty Darya-Belsey procedure many years ago. Family History Family History Other Acute myocardial infarction Congestive heart failure Hypertension Social History Social History Social History: The patient is and lives with her in [place]. They do have a court specialist that comes to the home sometimes. They are in the process of attempting to sell their home to move to assisted living. They have 1 daughter, Yadi Barreto, who lives in [place]. Yadi is her healthcare power of commonwealth attorney, and the patient is listed as a full code. 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 No alcohol, tobacco, or drug use. Smoking status: Never smoker Alcohol intake: never Substance use: never Substance use type: does not use Additional living arrangements comments: Spiritual care concerns: No Exam Const: General: healthy appearing, no acute distress and alert Limitations: no limitations HENMT: Head: normal to inspection Eyes: Pupils: Equal, round and reactive pupils present Chest: Chest palpation & inspection: normal inspection of the chest Resp: Effort & Inspection: normal respiratory effort Auscultation: clear to auscultation bilaterally Cardio: Rate: regular rate Rhythm: regular rhythm GI: GI Palp: Yes Soft to palpation and No Tenderness to palpation present (GI) Skin: General skin exam: normal color Neuro: General: patient oriented x3, moves all extremities, no focal motor deficits and CN's II-XI intact bilaterally Course Vital Signs Vital signs: Vital Signs Temperature 36.8 C 04/09/21 09:58 Pulse Rate 64 04/09/21 09:58 Respiratory Rate 16 04/09/21 09:58 Blood Pressure 130/65 04/09/21 09:58 Pulse Oximetry 99 04/09/21 09:58 Temperature 36.6 C 04/09/21 11:48 Pulse Rate 61 04/09/21 15:37 Respiratory Rate 18 04/09/21 13:48 Blood Pressure 145/80 H 04/09/21 15:37 Pulse Oxi
[2021-04-09 12:46] LABS: Basophils Percent Auto 0.4 % (0.2-1.2); Eosinophils Absolute Auto 0.1 K/mm3 (0-0.3); Eosinophils Percent Auto 1.1 % (0-4.4); Hematocrit 39.3 % (37.0-47.0); Immature Granulocyte Absolute 0.03 K/mm3 (0.00-0.031); Immature Granulocyte Percent A 0.5 % (0-0.5); Lymphocytes Absolute Auto 1.77 K/mm3 (0.9-3.2); Lymphocytes Percent Auto 31.2 % (18.3-44.2); Mean Corpuscular HGB Conc 33.1 g/dl (32-36); Mean Corpuscular Volume 102.9 fl (80-100); Mean Platelet Volume 9.7 fl (7.4-10.4); Monocytes Absolute Auto 0.5 K/mm3 (0.1-0.6); Monocytes Percent Auto 8.8 % (2.6-8.5); Neutrophils Absolute Auto 3.3 K/mm3 (1.3-6.7); Platelet Count Result 189 k/mm3 (150-375); Red Blood Count 3.82 M/mm3 (4.2-5.4); Red Cell Distribution Width 13.3 % (11.5-14.5); White Blood Count 5.7 K/mm3 (4.5-10.0)
[2021-04-09 13:24] LABS: Alanine Aminotransferase 9 U/L (4-35); Albumin Level 3.9 g/dL (3.5-5.1); Alkaline Phosphatase 40 U/L (38-126); Anion Gap 5 mmol/L (8-16); Aspartate Amino Transferase 23 U/L (14-36); Bilirubin,Total 0.7 mg/dL (0.2-1.3); Blood Urea Nitrogen 16 mg/dL (7-17); Calcium 9.4 mg/dL (8.4-10.2); Carbon Dioxide 35 mmol/L (22-30); Chloride 103 mmol/L (98-107); Estimated CRCL calculation 52 ml/min; Estimated Glomerular Filt Rate > 60; Glucose 80 mg/dL (65-105); Potassium 3.4 mmol/L (3.4-5.0); Sodium 143 mmol/L (137-145)
[2021-04-09 13:25] LABS: INR 1.1; Partial Thromboplastin Time 25.2 SECONDS (22.3-36.8); Prothrombin Time 14.4 Seconds (11.1-14.7)
[2021-04-09 13:36] LABS: NT Pro B Type Natriuretic Pept 49 pg/mL (5-100); Troponin I < 0.012 ng/mL (0.000-0.034)
[2021-04-09 13:48] VITALS: BP 152/78; PULSE 63; RESP 18; O2SAT 100
[2021-04-09 13:49] LABS: Add Urine Microscopic? YES; Appearance Urine Clear (Clear); Bilirubin Urine Negative (Negative); Blood Urine Negative (Negative); Color Urine Yellow (Yellow); Glucose Urine UA Negative (Negative); Ketones Urine Negative (Negative); Leukocyte Esterase Ur Negative LEU/UL (Negative); Mucus Urine Rare /lpf; Nitrate Urine Negative (Negative); Protein Urine 1+ mg/dL (Negative); RBC Urine 0-2 /hpf (0-2); Specific Grav Ur 1.019 (1.001-1.035); Squamous Epithelial Cell Urine Rare /hpf (Few); WBC Urine 0-3 /hpf
[2021-04-09] MEDS: CEPHALEXIN 500 MG CAPSULE PO (14:54)
[2021-04-09 15:37] VITALS: BP 145/80; PULSE 61; O2SAT 99
== END 2021-04-09 15:35 | disposition home or self-care (01) ==
PROVIDERS: Family Medicine; Emergency Provider Emergency Medicine; PCP Internal Medicine
DX: L03.116 Cellulitis of left lower limb (principal); L03.115 Cellulitis of right lower limb; G30.9 Alzheimer's disease, unspecified; F02.80 Dementia in other diseases classified elsewhere, unspecified severity, without behavioral disturbance, psychotic disturbance, mood disturbance, and anxiety; Z79.01 Long term (current) use of anticoagulants; F41.9 Anxiety disorder, unspecified; F32.9 Major depressive disorder, single episode, unspecified; I10 Essential (primary) hypertension; K21.9 Gastro-esophageal reflux disease without esophagitis; E78.5 Hyperlipidemia, unspecified; E03.9 Hypothyroidism, unspecified; M19.90 Unspecified osteoarthritis, unspecified site
CPT/HCPCS: 36415; 51701; 71046; 80053; 81001; 83880; 84484; 85025; 85610; 85730; 93005; 99284; A9270

== ENCOUNTER 2021-07-01 13:19 | Emergency (ER) | payer MEDICARE, SELFPAY ==
--- NOTE | ~2021-07-01 | XR_ITS ---
EXAMINATION: XR chest 2V EXAM DATE: 07/01/2021 13:48 INDICATION: Shortness of breath. Altered mental status. TECHNIQUE: Frontal and lateral projections of the chest obtained and reviewed. Comparison is made to prior examination from 03/30/2021. FINDINGS: The lungs are hyperinflated which can be seen with chronic obstructive pulmonary disease ( a clinical diagnosis of functional impairment), but is not diagnostic of it. Mild cardiomegaly. No co nfluent consolidation, pneumothorax or pleural effusion suspected. The bones are osteopenic. There a re bony degenerative changes. Patient has diffuse idiopathic skeletal hyperostosis (DISH). There is n o significant interval change. IMPRESSION: Hyperinflation. Reviewed, dictated and finalized at location A. IMPRESSION: Hyperinflation.
[2021-07-01 13:23] VITALS: BP 105/50; PULSE 58; RESP 18; TEMP 36.4; O2SAT 95
[2021-07-01 14:37] LABS: Basophils Percent Auto 0.6 % (0.2-1.2); Eosinophils Absolute Auto 0.1 K/mm3 (0-0.3); Eosinophils Percent Auto 1.3 % (0-4.4); Hematocrit 37.6 % (37.0-47.0); Hemoglobin 12.5 g/dL (12.0-15.0); Immature Granulocyte Absolute 0.03 K/mm3 (0.00-0.031); Immature Granulocyte Percent A 0.5 % (0-0.5); Lymphocytes Absolute Auto 1.64 K/mm3 (0.9-3.2); Lymphocytes Percent Auto 25.8 % (18.3-44.2); Mean Corpuscular HGB Conc 33.2 g/dl (32-36); Mean Corpuscular Hemoglobin 34.7 pg (26-34); Mean Corpuscular Volume 104.4 fl (80-100); Mean Platelet Volume 9.6 fl (7.4-10.4); Monocytes Absolute Auto 0.5 K/mm3 (0.1-0.6); Monocytes Percent Auto 8.5 % (2.6-8.5); Neutrophils Percent Auto 63.3 % (45.5-73.1); Platelet Count Result 217 k/mm3 (150-375); Red Cell Distribution Width 13.9 % (11.5-14.5); White Blood Count 6.4 K/mm3 (4.5-10.0)
[2021-07-01 14:48] LABS: Alanine Aminotransferase 12 U/L (4-35); Alkaline Phosphatase 44 U/L (38-126); Aspartate Amino Transferase 28 U/L (14-36); Bilirubin,Total 1.3 mg/dL (0.2-1.3); Blood Urea Nitrogen 23 mg/dL (7-17); Calcium 9.3 mg/dL (8.4-10.2); Carbon Dioxide > 40 mmol/L (22-30); Chloride 90 mmol/L (98-107); Estimated CRCL calculation 37 ml/min; Estimated Glomerular Filt Rate 54; Glucose 108 mg/dL (65-110); Potassium 2.7 mmol/L (3.4-5.0); Sodium 139 mmol/L (137-145)
[2021-07-01 15:02] LABS: Add Urine Microscopic? YES; Appearance Urine Clear (Clear); Bacteria Urine Trace /hpf; Bilirubin Urine 1+ (Negative); Blood Urine Negative (Negative); Color Urine Amber (Yellow); Glucose Urine UA Negative (Negative); Ketones Urine Negative (Negative); Leukocyte Esterase Ur 2+ LEU/UL (Negative); Mucus Urine Few /lpf; Nitrate Urine Negative (Negative); Protein Urine Negative (Negative); RBC Urine 21-50 /hpf (0-2); Specific Grav Ur 1.021 (1.001-1.035); Squamous Epithelial Cell Urine Rare /hpf (Few)
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
--- NOTE | 2021-07-01 15:48 | PC.NURSE ---
Pt refusing powdered KCL. Willing to try PO pill. PA notified.
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
--- NOTE | 2021-07-01 20:55 | ED.GENADULT ---
HPI - General Adult General Chief complaint: Altered Mental Status Stated complaint: Increase in confusion Time Seen by Provider: 07/01/21 13:33 Source: patient and other (Caregiver) Mode of arrival: wheelchair Limitations: dementia History of Present Illness HPI narrative: Patient with history of Alzheimer disease for 10+ years presents with her caregiver for evaluation by her primary care doctor for any signs of infection. Patient has continued to decline over the past few weeks and they have decided to put her on hospice care but her primary care does want to make sure there were not any acute infections that could be causing her symptoms prior to doing so. Patient denies any symptoms or concerns. Patient's caregiver states that she only eats donuts and breakfast sandwiches. Patient is sometimes combative. Patient vitals have been at her baseline. She has been afebrile. She has not complained of any pain. Related Data Home Medications Medication Instructions Recorded Confirmed Eliquis 2.5 mg PO DAILY 03/09/20 03/10/20 lamotrigine 100 mg PO DAILY 03/09/20 03/10/20 levothyroxine 75 mcg PO DAILY 03/09/20 03/10/20 pravastatin 40 mg PO DAILY 03/09/20 03/10/20 valproic acid 250 mg PO BID 03/09/20 03/10/20 Allergies Allergy/AdvReac Type Severity Reaction Status Date / Time No Known Allergies Allergy Unknown Verified 01/15/21 21:42 Review of Systems Review of Systems: CONSTITUTIONAL: Denies fever, chills, or sweats. EYES: Denies visual changes, redness, or discharge. ENT: Denies rhinorrhea, congestion, sore throat, or otalgia. CARDIOVASCULAR: Denies chest pain, palpitations, or edema. RESPIRATORY: Denies cough or dyspnea. GASTROINTESTINAL: Denies abdominal pain, nausea, vomiting, or diarrhea. GENITOURINARY: Denies dysuria or hematuria. SKIN: Denies rash or itching. MUSCULOSKELETAL: Denies back pain, joint pain, or myalgia. NEUROLOGIC: Reports dementia denies headache, numbness, dizziness, or weakness. PSYCHIATRIC: Denies anxiety or depression. [facility] Past Medical History Medical History Alzheimer's dementia Current use of assisted anticoagulation Depression with anxiety DVT (deep venous thrombosis) (~2005) Essential hypertension GERD (gastroesophageal reflux disease) Hyperlipidemia Hypothyroidism Osteoarthritis Pulmonary embolism (~2013) Seizure This is poorly documented in her medical record. She may take lamotrigine and valproic acid for her dementia. TIA (transient ischemic attack) Surgical History Surgical History History of appendectomy History of bilateral knee replacement History of cholecystectomy History of hysterectomy (~1988) History of inguinal hernia repair (~2006) History of tonsillectomy Status post gastroplasty Darya-Belsey procedure many years ago. Family History Family History Other Acute myocardial infarction Congestive heart failure Hypertension Social History Social History Social History: The patient is and lives with her in [place]. They do have a field account director that comes to the home sometimes. They are in the process of attempting to sell their home to move to assisted living. They have 1 daughter, Yadi Barreto, who lives in [place]. Yadi is her healthcare power of circuit board assembler, and the patient is listed as a full code. 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 No alcohol, tobacco, or drug use. Smoking status: Never smoker Alcohol intake: never Substance use: never Substance use type: does not use Additional living arrangements comments: Spiritual care concerns: No Exam Narrative: GENERAL: Well-appearing, well-nourished, and in no acute distress. HEAD: Normocephalic, atraumatic. EYES: PERRLA and EOMI. N
== END 2021-07-01 16:09 | disposition home or self-care (01) ==
PROVIDERS: Emergency Provider Emergency Medicine; PCP Internal Medicine
DX: G30.9 Alzheimer's disease, unspecified (principal); F02.80 Dementia in other diseases classified elsewhere, unspecified severity, without behavioral disturbance, psychotic disturbance, mood disturbance, and anxiety; N39.0 Urinary tract infection, site not specified; E87.6 Hypokalemia; E78.5 Hyperlipidemia, unspecified; E03.9 Hypothyroidism, unspecified; K21.9 Gastro-esophageal reflux disease without esophagitis; M19.90 Unspecified osteoarthritis, unspecified site; Z86.718 Personal history of other venous thrombosis and embolism; Z79.01 Long term (current) use of anticoagulants; Z86.711 Personal history of pulmonary embolism; Z86.73 Personal history of transient ischemic attack (TIA), and cerebral infarction without residual deficits; Z96.653 Presence of artificial knee joint, bilateral
CPT/HCPCS: 36415; 51701; 71046; 80053; 81001; 85025; 87086; 99283; A9270

== ENCOUNTER 2021-07-21 22:03 | Inpatient (IN) | payer MEDICARE, SELFPAY ==
--- NOTE | ~2021-07-21 | CT_ITS ---
EXAMINATION: CT chest abdomen pelvis wo con DATE: 07/24/2021 11:22 CDT INDICATION: Altered mental status TECHNIQUE: Computed tomography (CT) of the chest, abdomen, and pelvis was performed without intraveno us contrast. The dose-length product was 488.42 mGy-cm. Automated exposure control and iterative maria esther nstruction technique were employed. COMPARISON: CT dated 09/04/2014 FINDINGS: CHEST CT: Heart size normal. No significant pleural or pericardial effusion. There is hiatal hernia with fluid in the esophagus, consistent with reflux. There are surgical changes of the gastroesophageal junction . No significant pleural or pericardial effusion. No thoracic lymphadenopathy. Heart size normal. No endobronchial lesions. Left lower lobe atelectasis. No suspicious pulmonary nodules or masses. No pne umothorax. There is scoliosis. No focal airspace disease. ABDOMEN/PELVIS CT: Surgical changes consistent with previous abdominal wall hernia repair. Small fluid collection anteri or abdominal wall measuring 1.8 cm maximum dimension, likely postsurgical seroma/hematoma. Infection is less likely. Nonobstructive bowel gas pattern. Moderate bladder distention. No abnormal pelvic mas ses or fluid collections. Status post hysterectomy. There are additional surgical changes in the abdo men. Moderate colonic fecal loading. No free air or free fluid. There is osteoarthritis of the hips. , Most likely postsurgical seroma/hematoma. Infection is less favored. The liver, spleen, pancreas, adrenal glands and kidneys are unremarkable. Gallbladder is present. IMPRESSION: 1. No acute abnormality of the chest, abdomen or pelvis. 2: Surgical changes of previous abdominal wall hernia repair. There is a contiguous 1.8 cm fluid mandeep ection anterior abdominal wall Reviewed, dictated and finalized at location A. IMPRESSION: 1. No acute abnormality of the chest, abdomen or pelvis. 2: Surgical changes of previous abdominal wall hernia repair. There is a contig uous 1.8 cm fluid collection anterior abdominal wall
--- NOTE | ~2021-07-21 | CT_ITS ---
EXAMINATION: CT brain wo con DATE: 07/22/2021 00:13 INDICATION: Multiple falls. Dementia. TECHNIQUE: Computed tomography (CT) of the head was performed without intravenous contrast. The mA wa s adjusted according to patient size. Iterative reconstruction technique was employed. Exam dose: 60 5.33 mGy-cm total exam DLP. COMPARISON: 03/09/2020 CT brain FINDINGS: Bilateral vertebral artery and bilateral carotid siphon internal carotid artery calcificati ons are noted. There is nonspecific diminished attenuation of the cerebral white matter, likely due t o chronic small vessel ischemic changes. There are central and cortical cerebral and cerebellar atrophy. No intracranial mass lesion or hemorrhage or recent cerebrovascular accident is evident. No midline s hift or mass effect. No subdural or epidural hematoma. No fracture or bone destruction of the cranial vault. The mastoid air cells and included paranasal sinuses are normally developed and aerated. IMPRESSION: Cerebral atherosclerosis and chronic small vessel ischemic changes of the cerebral white matter Cerebral and cerebellar atrophy No acute intracranial finding Reviewed, dictated and finalized at [facility]. Reviewed, dictated and finalized at location B.
[2021-07-21 21:49] VITALS: BP 111/77; PULSE 74; RESP 20; O2SAT 97
[2021-07-21 22:35] VITALS: BP 114/62; PULSE 76; RESP 20; O2SAT 98
--- NOTE | 2021-07-21 22:35 | ECG_ITS ---
Measurements Intervals [place] Rate: 74 P: -13 ID: 148 QRS: -36 QRSD: 108 T: 0 QT: 417 QTc: 465 Interpretive Statements SINUS RHYTHM LEFT AXIS DEVIATION BORDERLINE R WAVE PROGRESSION, ANTERIOR LEADS BORDERLINE T WAVE ABNORMALITY- INFERIOR LEADS BASELINE ARTIFACT- I, II, III BORDERLINE ECG Electronically Signed On 07-22-2021 6:49:55 CDT by Ambrocio Nicole D.O.
[2021-07-21 23:04] LABS: Basophils Absolute Auto 0.1 K/mm3 (0.0-0.1); Basophils Percent Auto 0.7 % (0.2-1.2); Eosinophils Absolute Auto 0.1 K/mm3 (0-0.3); Eosinophils Percent Auto 1.1 % (0-4.4); Hematocrit 34.4 % (37.0-47.0); Hemoglobin 11.7 g/dL (12.0-15.0); Immature Granulocyte Absolute 0.03 K/mm3 (0.00-0.031); Immature Granulocyte Percent A 0.4 % (0-0.5); Lymphocytes Absolute Auto 2.38 K/mm3 (0.9-3.2); Lymphocytes Percent Auto 33.5 % (18.3-44.2); Mean Corpuscular Hemoglobin 33.8 pg (26-34); Mean Corpuscular Volume 99.4 fl (80-100); Mean Platelet Volume 9.2 fl (7.4-10.4); Monocytes Absolute Auto 0.6 K/mm3 (0.1-0.6); Monocytes Percent Auto 7.7 % (2.6-8.5); Neutrophils Percent Auto 56.6 % (45.5-73.1); Platelet Count Result 193 k/mm3 (150-375); Red Blood Count 3.46 M/mm3 (4.2-5.4); Red Cell Distribution Width 13.2 % (11.5-14.5); White Blood Count 7.1 K/mm3 (4.5-10.0)
[2021-07-21 23:11] LABS: Add Urine Microscopic? YES; Appearance Urine Clear (Clear); Bacteria Urine Trace /hpf; Bilirubin Urine Negative (Negative); Blood Urine Negative (Negative); Color Urine Yellow (Yellow); Glucose Urine UA Negative (Negative); Ketones Urine Negative (Negative); Leukocyte Esterase Ur Negative LEU/UL (Negative); Mucus Urine Rare /lpf; Nitrate Urine Negative (Negative); Protein Urine Negative (Negative); Specific Grav Ur 1.016 (1.001-1.035); Squamous Epithelial Cell Urine Rare /hpf (Few)
[2021-07-21 23:15] LABS: Alanine Aminotransferase 13 U/L (4-35); Alkaline Phosphatase 46 U/L (38-126); Anion Gap 8 mmol/L (8-16); Aspartate Amino Transferase 30 U/L (14-36); Bilirubin,Total 1.6 mg/dL (0.2-1.3); Blood Urea Nitrogen 21 mg/dL (7-17); Calcium 9.2 mg/dL (8.4-10.2); Carbon Dioxide 37 mmol/L (22-30); Chloride 95 mmol/L (98-107); Estimated Glomerular Filt Rate > 60; Glucose 84 mg/dL (65-110); Potassium 2.9 mmol/L (3.4-5.0); Sodium 140 mmol/L (137-145)
--- NOTE | 2021-07-21 23:21 | ED.AMS ---
HPI - Altered Mental Status General Chief Complaint: Altered Mental Status Stated Complaint: unable to keep safe, dementia Time Seen by Provider: 07/21/21 22:45 Source: family Mode of arrival: EMS Limitations: dementia History of Present Illness HPI narrative: Patient 76 years old white female brought to the emergency room by her because of increased confusion, and the frequency of falls in the last 2 to 3 days. Patient was seen by her neurologist at [facility] and started on olanzapine 5 mg 2 tablets nightly and lorazepam 0.5 mg 2 tablets twice daily. To calm patient down. The denied that the patient had any fever, chills, nausea, vomiting. Is telling me that the patient been fully vaccinated for COVID-19. I do not believe that the wrote the doses of the above medication accurately. The does not know what to do for her, is not able to sleep or to take care of himself. Related Data Home Medications Medication Instructions Recorded Confirmed Eliquis 2.5 mg PO DAILY 03/09/20 03/10/20 lamotrigine 100 mg PO DAILY 03/09/20 03/10/20 levothyroxine 75 mcg PO DAILY 03/09/20 03/10/20 pravastatin 40 mg PO DAILY 03/09/20 03/10/20 valproic acid 250 mg PO BID 03/09/20 03/10/20 Allergies Allergy/AdvReac Type Severity Reaction Status Date / Time No Known Allergies Allergy Unknown Verified 07/21/21 22:36 Review of Systems Review of Systems: ROS unobtainable: Yes unobtainable due to medical condition and unobtainable due to mental status PMFSH Past Medical History Medical History Alzheimer's dementia Current use of longterm anticoagulation Depression with anxiety DVT (deep venous thrombosis) (~2005) Essential hypertension GERD (gastroesophageal reflux disease) Hyperlipidemia Hypothyroidism Osteoarthritis Pulmonary embolism (~2013) Seizure This is poorly documented in her medical record. She may take lamotrigine and valproic acid for her dementia. TIA (transient ischemic attack) Surgical History Surgical History History of appendectomy History of bilateral knee replacement History of cholecystectomy History of hysterectomy (~1988) History of inguinal hernia repair (~2006) History of tonsillectomy Status post gastroplasty Darya-Belsey procedure many years ago. Family History Family History Other Acute myocardial infarction Congestive heart failure Hypertension Social History Social History Social History: The patient is and lives with her in [place]. They do have a grading machine feeder that comes to the home sometimes. They are in the process of attempting to sell their home to move to assisted living. They have 1 daughter, Yadi Barreto, who lives in [place]. Yadi is her healthcare power of attorney general, and the patient is listed as a full code. 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 No alcohol, tobacco, or drug use. Smoking status: Never smoker Alcohol intake: never Substance use: never Substance use type: does not use Additional living arrangements comments: Spiritual care concerns: No Exam Narrative: General appearance: Well-developed, well-nourished, confused, restless Skin: Normal color Head: Normocephalic, nontraumatic Eyes: Clear conjunctiva ENT: Oropharynx normal, ears normal, nose normal Neck: Supple, nontender Chest and respiratory: Airway patent, no respiratory distress, no accessory muscle use Heart: Regular rate/rhythm Abdomen: Soft, nontender, no organomegaly, quiet bowel sounds Vascular: Normal peripheral pulses, normal capillary refill. Musculoskeletal: Normal range of motion, nontender back Neurologic: Alert and oriented oriented to her name only
--- NOTE | 2021-07-21 23:51 | PC.NURSE ---
Talked to Bruna in lab to add TSH and Valproic AC
[2021-07-22] VITALS (7 sets, daily range): BP systolic 109–135; BP diastolic 59–91; PULSE 70–75; RESP 14–20; TEMP 35.9–36.7; O2SAT 96–100; BMI 20.2
[2021-07-22 00:39] LABS: Valproic Acid < 10.0 ug/mL (50-120)
[2021-07-22] MEDS: POTASSIUM CHLORIDE 20 MEQ TABLET PO (00:40)
[2021-07-22] MEDS: LEVOTHYROXINE SODIUM 150 MCG TABLET PO (02:23)
[2021-07-22] MEDS: VALPROIC ACID 250 MG CAPSULE PO ×3 (02:23→20:01)
--- NOTE | 2021-07-22 02:47 | ADMGEN ---
This patient, Mouna Johnson, was admitted to 2 Medical Room 255-. Patient/family oriented to hospital policies and general routines including ID bracelet, bed and alarms, visiting hours, pain management, procedures, bathroom and other care routines, personal items, smoking policy, room service/diet, and visiting hours. Information on how to activate the Rapid Response Team has been discussed. Patient/Family are encouraged to report perceived risks to care and to ask questions if they do not understand what they are told or what they should do.
[2021-07-22] MEDS: SERTRALINE HCL 50 MG TABLET PO (09:10)
[2021-07-22] MEDS: PANTOPRAZOLE 40 MG TABLET PO (09:10)
[2021-07-22] MEDS: PRAVASTATIN SODIUM 20 MG TABLET 40 MG PO (09:10)
[2021-07-22] MEDS: lamoTRIgine 100 MG TABLET PO (09:10)
[2021-07-22] MEDS: ENOXAPARIN 40 MG/0.4 ML SYRINGE SUB-Q (09:11)
[2021-07-22] MEDS: POTASSIUM CHLORIDE 20 MEQ TABLET 40 MEQ PO ×2 (09:11→13:18)
--- NOTE | 2021-07-22 09:54 | PM.IMHP ---
H&P: HPI History of Present Illness Date/Time: 07/22/21 09:54 Chief Complaint: She was placed in OBSERVATION Falls Narrative: This is a 76 year old woman with history of Alzheimer's Dementia who sees Dr. Donna Dubose Neurologist at [facility], who presented to the ER with complaints of frequent falls and confusion and her can no longer take care of her at home. History obtained by the , Jorge. The patient has been having dizziness, feeling off balance and about 6 falls in the last 48 hours prior to arrival. The patient has also been more combative with the patient's and has not been sleeping well for about 1 week. The patient saw her neurologist at [facility] on Monday07/19/21 and started her olanzapine which they did not pick up truck driver from the pharmacy yet and increased her dose of Ativan. The patient's became concerned when she fell 4 times prior to arrival and he needed to call EMS to help her get up. Finally the last time they came they decided to take her to the emergency room for further evaluation workup. Patient's denies any syncopal episodes, seizure-like activity, significant trauma or her complaining of any pain from her falls. The patient's states he has been giving her all of her medications as prescribed and have not missed any doses. Otherwise the patient eats pretty well and drinks plenty of fluids. The patient not been having issues of frequent urination, complaining of pain with urination or other issues. Patient's denies any cough recently, trouble breathing, abdominal pain, slurred speech, focal weakness, or any other symptoms at this time. Code Status- DNR POA- Jorge PCP- Dr. Thorne Review of Systems Review of Systems: ROS unobtainable: Yes unobtainable due to medical condition PMFSH Past Medical History Medical History Alzheimer's dementia Current use of terminal carman anticoagulation Depression with anxiety DVT (deep venous thrombosis) (~2005) Essential hypertension GERD (gastroesophageal reflux disease) Hyperlipidemia Hypothyroidism Osteoarthritis Pulmonary embolism (~2013) Seizure This is poorly documented in her medical record. She may take lamotrigine and valproic acid for her dementia. TIA (transient ischemic attack) Surgical History Surgical History History of appendectomy History of bilateral knee replacement History of cholecystectomy History of hysterectomy (~1988) History of inguinal hernia repair (~2006) History of tonsillectomy Status post gastroplasty Darya-Belsey procedure many years ago. Family History Family History Other Acute myocardial infarction Congestive heart failure Hypertension Social History Social History (Updated 07/22/21 @ 12:54 by Asya Hammer PA-C) Social History: The patient is and lives with her in [place]. They do have a florist helper that comes to the home sometimes. They are in the process of attempting to sell their home to move to assisted living. They have 1 daughter, Yadi Barreto, who lives in [place]. Jorge her is her healthcare power of divorce attorney, and the patient is a do not resuscitate and her will bring up the paperwork which states this. 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 No alcohol, tobacco, or drug use. Smoking status: Unknown if ever smoked Alcohol intake: never Substance use: never Substance use type: does not use Living arrangements: with family Additional living arrangements comments: Occupation/Education: retired Spiritual care concerns: No Meds Home Medications and Allergies Home Medications Medication Instructions Recorded Confirmed Type Eliquis 2.5 mg PO BID 03/09/20 07/22/21 History lamotrigine 100 mg
[2021-07-22 10:11] LABS: Hematocrit 35.3 % (37.0-47.0); Hemoglobin 11.9 g/dL (12.0-15.0); Mean Corpuscular HGB Conc 33.7 g/dl (32-36); Mean Corpuscular Hemoglobin 34.2 pg (26-34); Mean Corpuscular Volume 101.4 fl (80-100); Mean Platelet Volume 9.4 fl (7.4-10.4); Platelet Count Result 197 k/mm3 (150-375); Red Blood Count 3.48 M/mm3 (4.2-5.4); Red Cell Distribution Width 13.2 % (11.5-14.5); White Blood Count 6.5 K/mm3 (4.5-10.0)
[2021-07-22 10:46] LABS: Alanine Aminotransferase 14 U/L (4-35); Albumin Level 3.8 g/dL (3.5-5.1); Alkaline Phosphatase 45 U/L (38-126); Anion Gap 5 mmol/L (8-16); Aspartate Amino Transferase 33 U/L (14-36); Bilirubin,Total 1.4 mg/dL (0.2-1.3); Blood Urea Nitrogen 19 mg/dL (7-17); Carbon Dioxide 39 mmol/L (22-30); Chloride 98 mmol/L (98-107); Estimated CRCL calculation 50 ml/min; Estimated Glomerular Filt Rate > 60; Glucose 116 mg/dL (65-110); Magnesium 1.7 mg/dL (1.6-2.3); Potassium 2.8 mmol/L (3.4-5.0); Sodium 142 mmol/L (137-145)
[2021-07-22] MEDS: MAGNESIUM SULFATE 3GM/D5W100ML 3 GM/100 ML BAG IVPB (11:24)
[2021-07-22] MEDS: APIXABAN 2.5 MG TABLET PO ×2 (11:27→16:38)
[2021-07-22 12:43] LABS: Free T4 Free Thyroxine Reflex 1.55 ng/dL (0.78-2.19)
[2021-07-22 16:03] LABS: Total Triiodothyronine (T3) 0.84 NG/ML (0.97-1.69)
[2021-07-22] MEDS: QUEtiapine FUMARATE 25 MG TABLET PO (20:01)
[2021-07-22] MEDS: OLANZapine 5 MG TABLET PO (20:01)
[2021-07-23] VITALS: BP 133/62; PULSE 70; RESP 18; TEMP 36.1; O2SAT 99
[2021-07-23 04:38] VITALS: BP 139/62; PULSE 67; RESP 22; TEMP 36.2; O2SAT 100
[2021-07-23] MEDS: LEVOTHYROXINE SODIUM 112 MCG TABLET PO (05:54)
[2021-07-23 06:14] LABS: Anion Gap 10 mmol/L (8-16); Blood Urea Nitrogen 13 mg/dL (7-17); Carbon Dioxide 29 mmol/L (22-30); Chloride 105 mmol/L (98-107); Estimated CRCL calculation 57 ml/min; Estimated Glomerular Filt Rate > 60; Glucose 72 mg/dL (65-110); Sodium 144 mmol/L (137-145)
[2021-07-23] MEDS: ENOXAPARIN 40 MG/0.4 ML SYRINGE SUB-Q (11:29)
[2021-07-23] MEDS: SERTRALINE HCL 50 MG TABLET PO (13:02)
[2021-07-23] MEDS: lamoTRIgine 100 MG TABLET PO (13:02)
[2021-07-23] MEDS: APIXABAN 2.5 MG TABLET PO ×2 (13:02→20:52)
[2021-07-23] MEDS: VALPROIC ACID 250 MG CAPSULE PO ×2 (13:02→20:52)
[2021-07-23] MEDS: PRAVASTATIN SODIUM 20 MG TABLET 40 MG PO (13:02)
[2021-07-23 14:40] VITALS: BP 142/86; PULSE 68; RESP 18; TEMP 35.7; O2SAT 99
--- NOTE | 2021-07-23 14:45 | PCPTNOTE ---
Attempted to see patient for PT, however patient agitated and resisting movement. Patient kept eyes closed and yelled just quit! PT will continue to follow per plan of care as patient participates.
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
--- NOTE | 2021-07-23 16:47 | PM.IMPN ---
Progress Note: A&P Assessment and Plan (1) Altered mental status: Qualifiers: Altered mental status type: unspecified Qualified Code(s): R41.82 - Altered mental status, unspecified Code(s): R41.82 - Altered mental status, unspecified Status: Acute Assessment and Plan: Patient brought in by for increased confusion, combativeness and frequent falls. No signs of acute infection with her urinalysis. Her white blood cell count and differential is completely normal. Do not believe associated with infection. Could be due to advanced Alzheimer's disease. Will continue on home medications and work on placement and work with physical occupational therapy. Continue monitoring. (2) Frequent falls: Code(s): R29.6 - Repeated falls Status: Acute Assessment and Plan: Working with PT/OT. Will work on placement after medically stable. No signs of any acute trauma, no complaints of pain, moving all extremities. (3) Hypokalemia: Code(s): E87.6 - Hypokalemia Status: Acute Assessment and Plan: Potassium normal. (4) Alzheimer's dementia: Code(s): G30.9 - Alzheimer's disease, unspecified; F02.80 - Dementia in other diseases classified elsewhere without behavioral disturbance Status: Acute Assessment and Plan: Will continue her home medications. She will need to follow-up with her neurologist at [facility] after discharge. (5) Hypothyroidism: Code(s): E03.9 - Hypothyroidism, unspecified Status: Acute Assessment and Plan: TSH when she came in was 84. Repeat today was 59 with normal free T4 and pending T3 reflux. Patient's states her levothyroxine was recently increased from 75 mg to 112 mg. states she has not missed any doses. Will continue this medication over follow-up with primary care provider for repeat TSH testing as outpatient. (6) Current use of alf anticoagulation: Code(s): Z79.01 - penitentiary (current) use of anticoagulants Status: Acute Assessment and Plan: At this time we will continue Eliquis 2.5 mg. Will talk with the more about fall risk versus stroke risk (7) Seizure: Code(s): R56.9 - Unspecified convulsions Status: Acute Assessment and Plan: Continue her lamotrigine and valproic acid at this time. No signs of seizure activity currently. Will need to follow-up with her neurologist at [facility] after discharge. Time Spent With Patient Time with patient: 25 - 35 minutes Subjective Date/time seen: 07/23/21 16:47 Interval history: Date of service 07/23/2021: The patient is a poor historian secondary to Alzheimer's dementia. Patient does not answer any of my questions appropriately. She is sleeping in bed and talking about things not related to my questions. Review of Systems Review of Systems: ROS unobtainable: Yes unobtainable due to medical condition Exam Narrative: General: 76-year-old woman sitting up in bed laying flat taking a nap, snoring. Appears comfortable. In no acute distress. Skin: No signs of trauma, no areas of ecchymosis to her extremities. No jaundice or cyanosis. Good skin turgor. Respiratory: She will not follow commands to take deep breaths. Lungs are otherwise clear to auscultation bilaterally. No wheezing, rales or rhonchi. No bony chest wall tenderness. Cardiovascular: The heart has a regular rate and rhythm without murmur. Extremities: Full range of motion of bilateral upper and lower extremities without any tenderness or obvious deformity. Lower extremities: Old surgical scars to bilateral knee
[2021-07-23] MEDS: LORazepam (*CRX) 0.5 MG TABLET PO (17:31)
[2021-07-23] MEDS: QUEtiapine FUMARATE 25 MG TABLET PO (20:52)
[2021-07-23] MEDS: OLANZapine 5 MG TABLET PO (20:52)
[2021-07-23 22:00] VITALS: BP 138/74; PULSE 73; RESP 18; TEMP 36.5; O2SAT 97
[2021-07-24 05:26] LABS: Hematocrit 38.9 % (37.0-47.0); Hemoglobin 12.6 g/dL (12.0-15.0); Mean Corpuscular HGB Conc 32.4 g/dl (32-36); Mean Corpuscular Hemoglobin 34.1 pg (26-34); Mean Corpuscular Volume 105.1 fl (80-100); Mean Platelet Volume 9.4 fl (7.4-10.4); Platelet Count Result 189 k/mm3 (150-375); Red Cell Distribution Width 13.3 % (11.5-14.5); White Blood Count 6.1 K/mm3 (4.5-10.0)
[2021-07-24 05:40] LABS: Alanine Aminotransferase 16 U/L (4-35); Albumin Level 3.9 g/dL (3.5-5.1); Alkaline Phosphatase 44 U/L (38-126); Anion Gap 9 mmol/L (8-16); Aspartate Amino Transferase 51 U/L (14-36); Bilirubin,Total 1.3 mg/dL (0.2-1.3); Blood Urea Nitrogen 14 mg/dL (7-17); CRP 1.1 mg/dL (<1.0); Carbon Dioxide 28 mmol/L (22-30); Chloride 106 mmol/L (98-107); Estimated CRCL calculation 50 ml/min; Estimated Glomerular Filt Rate > 60; Glucose 66 mg/dL (65-110); Potassium 4.2 mmol/L (3.4-5.0); Sodium 143 mmol/L (137-145)
[2021-07-24 06:00] VITALS: BP 118/53; PULSE 76; RESP 18; TEMP 36.4; O2SAT 96
[2021-07-24] MEDS: LEVOTHYROXINE SODIUM 112 MCG TABLET PO (06:21)
[2021-07-24 08:00] VITALS: BP 107/87; PULSE 78; RESP 16; TEMP 36.4; O2SAT 100
[2021-07-24 08:16] LABS: Glucose Point of Care 55 mg/dl (65-105)
[2021-07-24] MEDS: DEXTROSE 50% 25 GM/50 ML SYRINGE IV PUSH ×2 (08:35→17:59)
--- NOTE | 2021-07-24 08:50 | PC.NURSE ---
blood sugar checked by aid at 0820, blood sugar was 55. I notified Ally and orders were given. Will recheck blood sugar in 20 minutes
[2021-07-24 09:04] LABS: Glucose Point of Care 103 mg/dl (65-105)
--- NOTE | 2021-07-24 09:54 | PCPTNOTE ---
Attempted to see pt for physical therapy today. Pt was unable to follow cues, eyes closed, yelling at times. Will try again tomorrow.
[2021-07-24] MEDS: VALPROIC ACID 250 MG CAPSULE PO ×2 (10:30→22:17)
[2021-07-24] MEDS: ENOXAPARIN 40 MG/0.4 ML SYRINGE SUB-Q (10:30)
[2021-07-24] MEDS: APIXABAN 2.5 MG TABLET PO ×2 (10:30→17:12)
[2021-07-24] MEDS: lamoTRIgine 100 MG TABLET PO (10:30)
[2021-07-24] MEDS: SERTRALINE HCL 50 MG TABLET PO (10:30)
[2021-07-24] MEDS: PANTOPRAZOLE 40 MG TABLET PO (10:30)
--- NOTE | 2021-07-24 10:35 | PC.NURSE ---
unable to give 0900 pravastatin on time, waiting for pharmacy to send, pharmacy notified
[2021-07-24] MEDS: DEXTROSE 5%/LACTATED RINGERS 500 ML 50 ML IV CONT (10:37)
--- NOTE | 2021-07-24 10:46 | PCOTNOTE ---
Attempted to see patient for skilled OT session at this time. Patient lying in bed upon entry and responsive, but kept eyes closed when conversing with therapist. Patient refused participation in OT session at this time stating, come back later. Will attempt to see patient for a second time this date. Will continue OT per POC.
[2021-07-24 12:13] LABS: Folic Acid > 20.0 ng/mL (2.76->20)
--- NOTE | 2021-07-24 13:11 | PCPTNOTE ---
Checked with RN in regards to patients state and she reported that pt remains combative and unagreeable. Will attempt PT tomorrow
[2021-07-24 13:31] LABS: Alveolar/Arterial O2 Gradient 5.8 mmHg; Base Excess ABG 1.4 mEq/l (+/-2.0); Carboxyhemoglobin 0.3 % THb (0-2.0); Fractional Inspired Oxygen 21 %; HCO3 ABG 25.9 mEq/l (22.0-26.0); Methemoglobin ABG 0.3 %THb (0-1.5); Oxygen Content ABG 17.4 %vol (16.0-22.0); Oxygen Saturation ABG 97.4 % (95.0-100.0); Oxyhemoglobin 95.5 % THb (90.0-100.0); PCO2 ABG 40.8 mmHg (35.0-45.0); PO2 ABG 95.1 mmHg (80.0-100.0); PO2 FiO2 Ratio Arterial Blood 4.53 %; Reduced Hemoglobin 3.9 %THb (0-5.0); Total Hemoglobin 12.9 g/dL (12.0-18.0); pH ABG 7.421 (7.350-7.450)
[2021-07-24 13:32] LABS: Device ROOM AIR; Modified Allen's Test Unable to perform; Site Drawn LEFT RADIAL
--- NOTE | 2021-07-24 13:53 | PM.IMPN ---
Progress Note: A&P Assessment and Plan (1) Altered mental status: Qualifiers: Altered mental status type: unspecified Qualified Code(s): R41.82 - Altered mental status, unspecified Code(s): R41.82 - Altered mental status, unspecified Status: Acute Assessment and Plan: Patient brought in by for increased confusion, combativeness and frequent falls. No signs of acute infection with her urinalysis. Her white blood cell count and differential is completely normal. Urine Culture grew 50,000-100,000 Kassie Tropicalis. Will start Antifungal and I ordered Blood cultures which are pending. For further work up for patients AMS I completed a CT Chest/Abd/Pelvis which showed No acute abnormality of the chest, abdomen or pelvis. ABG was completely normal. Maybe associated with Fungal Infection vs advanced Alzheimer's disease. Will continue on home medications and work on placement and work with physical occupational therapy. Continue monitoring. (2) Frequent falls: Code(s): R29.6 - Repeated falls Status: Acute Assessment and Plan: Working with PT/OT. Will work on placement after medically stable. No signs of any acute trauma, no complaints of pain, moving all extremities. (3) Hypokalemia: Code(s): E87.6 - Hypokalemia Status: Acute Assessment and Plan: Potassium normal. (4) Alzheimer's dementia: Code(s): G30.9 - Alzheimer's disease, unspecified; F02.80 - Dementia in other diseases classified elsewhere without behavioral disturbance Status: Acute Assessment and Plan: Will continue her home medications. She will need to follow-up with her neurologist at [facility] after discharge. (5) Hypothyroidism: Code(s): E03.9 - Hypothyroidism, unspecified Status: Acute Assessment and Plan: TSH when she came in was 84. Repeat today was 59 with normal free T4 and pending T3 reflux. Patient's states her levothyroxine was recently increased from 75 mg to 112 mg. states she has not missed any doses. Will continue this medication over follow-up with primary care provider for repeat TSH testing as outpatient. 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 Will talk with the more about fall risk versus stroke risk (7) Seizure: Code(s): R56.9 - Unspecified convulsions Status: Acute Assessment and Plan: Continue her lamotrigine and valproic acid at this time. No signs of seizure activity currently. Will need to follow-up with her neurologist at [facility] after discharge. Subjective Date/time seen: 07/24/21 13:53 Interval history: Date of service 07/24/2021: The patient is a poor historian secondary to Alzheimer's dementia. Patient does not answer any of my questions appropriately. She is sleeping in bed and talking about things not related to my questions. I talked to the patient's who saw her yesterday and was at the hospital trying to get her to take her her medications. He told me, the patient was acting like she has been at home. Sleeping more than normal, confused. She did know who he was and had conversations with him at times. He did not think she was acting worse than when he initially brought her into the hospital. She was just not gotten any better. Review of Systems Review of Systems: ROS unobtainable: Yes unobtainable due to medical condition Exam Narrative: General: 76-year-old woman l
[2021-07-24] MEDS: PRAVASTATIN SODIUM 20 MG TABLET 40 MG PO (14:02)
--- NOTE | 2021-07-24 14:21 | ECG_ITS ---
Measurements Intervals [place] Rate: 68 P: -18 TX: 152 QRS: -43 QRSD: 94 T: -9 QT: 337 QTc: 361 Interpretive Statements SINUS RHYTHM LEFT AXIS DEVIATION BORDERLINE R WAVE PROGRESSION, ANTERIOR LEADS BORDERLINE T WAVE ABNORMALITY- ANTEROLAT/INF LEADS BASELINE ARTIFACT- I, II, III, AVR, AVL, AVF, V1, V3-V6 BORDERLINE ECG Electronically Signed On 07-24-2021 14:41:15 CDT by Ambrocio Nicole D.O.
[2021-07-24 16:00] VITALS: BP 129/99; PULSE 70; RESP 16; TEMP 36.4; O2SAT 100
[2021-07-24] MEDS: FLUCONAZOLE 200 MG/NACL 100 ML 200 MG/100 ML BAG 100 MG IVPB (17:13)
[2021-07-24 17:19] LABS: Glucose Point of Care 64 mg/dl (65-105)
[2021-07-24 18:58] LABS: Glucose Point of Care 105 mg/dl (65-105)
[2021-07-24] MEDS: OLANZapine 5 MG TABLET PO (22:16)
[2021-07-24] MEDS: QUEtiapine FUMARATE 25 MG TABLET PO (22:17)
[2021-07-25] VITALS: BP 134/64; PULSE 85; RESP 18; TEMP 37.1; O2SAT 96
[2021-07-25 05:12] LABS: Basophils Percent Auto 0.6 % (0.2-1.2); Eosinophils Absolute Auto 0.2 K/mm3 (0-0.3); Eosinophils Percent Auto 2.9 % (0-4.4); Hemoglobin 12.2 g/dL (12.0-15.0); Immature Granulocyte Absolute 0.02 K/mm3 (0.00-0.031); Immature Granulocyte Percent A 0.4 % (0-0.5); Lymphocytes Absolute Auto 1.63 K/mm3 (0.9-3.2); Lymphocytes Percent Auto 31.9 % (18.3-44.2); Mean Corpuscular Hemoglobin 34.5 pg (26-34); Mean Corpuscular Volume 104.5 fl (80-100); Mean Platelet Volume 9.4 fl (7.4-10.4); Monocytes Absolute Auto 0.3 K/mm3 (0.1-0.6); Monocytes Percent Auto 6.7 % (2.6-8.5); Neutrophils Absolute Auto 2.9 K/mm3 (1.3-6.7); Neutrophils Percent Auto 57.5 % (45.5-73.1); Platelet Count Result 194 k/mm3 (150-375); Red Blood Count 3.54 M/mm3 (4.2-5.4); Red Cell Distribution Width 13.3 % (11.5-14.5); White Blood Count 5.1 K/mm3 (4.5-10.0)
[2021-07-25 05:42] LABS: Alanine Aminotransferase 16 U/L (4-35); Albumin Level 3.8 g/dL (3.5-5.1); Alkaline Phosphatase 45 U/L (38-126); Anion Gap 7 mmol/L (8-16); Aspartate Amino Transferase 42 U/L (14-36); Blood Urea Nitrogen 14 mg/dL (7-17); CRP 0.8 mg/dL (<1.0); Calcium 9.1 mg/dL (8.4-10.2); Carbon Dioxide 31 mmol/L (22-30); Chloride 107 mmol/L (98-107); Estimated CRCL calculation 50 ml/min; Estimated Glomerular Filt Rate > 60; Glucose 83 mg/dL (65-110); Potassium 4.2 mmol/L (3.4-5.0); Sodium 145 mmol/L (137-145)
[2021-07-25 06:00] VITALS: BP 130/68; PULSE 78; RESP 16; TEMP 37; O2SAT 95
[2021-07-25 06:05] LABS: Cortisol Random 5.79 ug/dL
[2021-07-25] MEDS: LEVOTHYROXINE SODIUM 112 MCG TABLET PO (06:53)
--- NOTE | 2021-07-25 08:34 | ECG_ITS ---
Measurements Intervals [place] Rate: 74 P: -8 ND: 146 QRS: -40 QRSD: 97 T: -5 QT: 395 QTc: 440 Interpretive Statements SINUS RHYTHM LEFT AXIS DEVIATION BORDERLINE T WAVE ABNORMALITY- INFERIOR LEADS BASELINE ARTIFACT- I, II, III, AVR, AVL, AVF, V1-V6 BORDERLINE ECG Electronically Signed On 07-25-2021 9:38:33 CDT by Ambrocio Nicole D.O.
--- NOTE | 2021-07-25 08:53 | PCPTNOTE ---
Attempted to see pt- pt was combative and uncooperative for nursing. RN reported that pt is not appropriate for therapy at this time.
[2021-07-25] MEDS: DEXTROSE 5%/LACTATED RINGERS 1,000 ML 50 ML IV CONT (09:15)
--- NOTE | 2021-07-25 09:21 | PCPTNOTE ---
Spoke with MAILROOM PERSONNEL regarding pt status. Due to severe agitation and combativeness/confusion for last 3 PT attempts, the patient is currently not at candidate for skilled PT. DC PT at this time. Goals not being met.
--- NOTE | 2021-07-25 09:28 | PM.IMPN ---
Progress Note: A&P Assessment and Plan (1) Altered mental status: Qualifiers: Altered mental status type: unspecified Qualified Code(s): R41.82 - Altered mental status, unspecified Code(s): R41.82 - Altered mental status, unspecified Status: Acute Assessment and Plan: Patient brought in by for increased confusion, combativeness and frequent falls. No signs of acute infection with her urinalysis. Her white blood cell count and differential is completely normal. Urine Culture grew 50,000-100,000 Kassie Tropicalis. I ordered Blood cultures which shows no growth at this time. CT Chest/Abd/Pelvis which showed No acute abnormality of the chest, abdomen or pelvis. ABG was completely normal. Maybe associated with Fungal Infection vs advanced Alzheimer's disease. I started the patient on IV Diflucan for fungal UTI Day #2 Will continue on home medications and work on placement and work with physical occupational therapy. Continue monitoring. (2) Frequent falls: Code(s): R29.6 - Repeated falls Status: Acute Assessment and Plan: Working with PT/OT. Will work on placement after medically stable. No signs of any acute trauma, no complaints of pain, moving all extremities. (3) Hypokalemia: Code(s): E87.6 - Hypokalemia Status: Acute Assessment and Plan: Potassium normal. (4) Alzheimer's dementia: Code(s): G30.9 - Alzheimer's disease, unspecified; F02.80 - Dementia in other diseases classified elsewhere without behavioral disturbance Status: Acute Assessment and Plan: Will continue her home medications. She will need to follow-up with her neurologist at [facility] after discharge. (5) Hypothyroidism: Code(s): E03.9 - Hypothyroidism, unspecified Status: Acute Assessment and Plan: TSH when she came in was 84. Repeat today was 59 with normal free T4 and pending T3 reflux. Patient's states her levothyroxine was recently increased from 75 mg to 112 mg. states she has not missed any doses. Will continue this medication over follow-up with primary care provider for repeat TSH testing as outpatient. 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 Will talk with the more about fall risk versus stroke risk (7) Seizure: Code(s): R56.9 - Unspecified convulsions Status: Acute Assessment and Plan: Continue her lamotrigine and valproic acid at this time. No signs of seizure activity currently. Will need to follow-up with her neurologist at [facility] after discharge. (8) Hypoglycemia: Code(s): E16.2 - Hypoglycemia, unspecified Status: Acute Assessment and Plan: The patient has been having some issues with hypoglycemia. She has been requiring glucose injections to raise her glucose from 50 to The 100s. She has not been eating or drinking very much at all. We have her on IV dextrose/LR to help with her levels. Cortisol was checked and was on the low side at 5.79. Will check ACTH level which is pending at this time. Patient's sodium is on the high side of normal, potassium is normal, she has had low glucose levels and she has not been acidotic Will continue monitoring glucose levels q.6 hours since she is not eating. Continue IV fluids at this time. Time Spent With Patient Time with patient: 25 - 35 minutes Subjective Date/time seen: 07/25/21
[2021-07-25] MEDS: VALPROIC ACID 250 MG CAPSULE PO ×2 (09:41→20:46)
[2021-07-25] MEDS: PANTOPRAZOLE 40 MG TABLET PO (09:42)
[2021-07-25] MEDS: SERTRALINE HCL 50 MG TABLET PO (09:42)
[2021-07-25] MEDS: PRAVASTATIN SODIUM 20 MG TABLET 40 MG PO (09:42)
[2021-07-25] MEDS: lamoTRIgine 100 MG TABLET PO (09:42)
[2021-07-25] MEDS: ENOXAPARIN 40 MG/0.4 ML SYRINGE SUB-Q (09:42)
[2021-07-25] MEDS: APIXABAN 2.5 MG TABLET PO ×2 (09:42→16:42)
[2021-07-25 12:13] LABS: Glucose Point of Care 92 mg/dl (65-105)
[2021-07-25 14:00] VITALS: BP 118/51; PULSE 102; RESP 20; TEMP 36.5
[2021-07-25 16:51] LABS: Glucose Point of Care 82 mg/dl (65-105)
[2021-07-25] MEDS: FLUCONAZOLE 200 MG/NACL 100 ML 200 MG/100 ML BAG 100 MG IVPB (17:05)
--- NOTE | 2021-07-25 17:36 | PC.NURSE ---
Bladder scanned pt again on scanned 124 pt did eat 2 ice creams and drink small amount of apple juice will continue to monitor and bladder scan PRN.
[2021-07-25] MEDS: QUEtiapine FUMARATE 25 MG TABLET PO (20:46)
[2021-07-25] MEDS: OLANZapine 5 MG TABLET PO (20:46)
[2021-07-25 22:00] VITALS: BP 163/61; PULSE 71; RESP 22; TEMP 36.9; O2SAT 100
[2021-07-26] MEDS: DEXTROSE 5%/LACTATED RINGERS 1,000 ML 75 ML IV CONT (01:44)
[2021-07-26 01:52] LABS: Glucose Point of Care 81 mg/dl (65-105)
[2021-07-26 05:50] LABS: Hematocrit 36.7 % (37.0-47.0); Hemoglobin 12.3 g/dL (12.0-15.0); Mean Corpuscular HGB Conc 33.5 g/dl (32-36); Mean Corpuscular Hemoglobin 34.3 pg (26-34); Mean Corpuscular Volume 102.2 fl (80-100); Mean Platelet Volume 9.3 fl (7.4-10.4); Platelet Count Result 203 k/mm3 (150-375); Red Blood Count 3.59 M/mm3 (4.2-5.4); Red Cell Distribution Width 13.2 % (11.5-14.5); White Blood Count 5.6 K/mm3 (4.5-10.0)
[2021-07-26 06:00] VITALS: BP 129/68; PULSE 64; RESP 20; TEMP 36.6; O2SAT 98
[2021-07-26 06:03] LABS: Anion Gap 8 mmol/L (8-16); Blood Urea Nitrogen 11 mg/dL (7-17); Calcium 8.9 mg/dL (8.4-10.2); Carbon Dioxide 29 mmol/L (22-30); Chloride 106 mmol/L (98-107); Estimated CRCL calculation 67 ml/min; Estimated Glomerular Filt Rate > 60; Glucose 95 mg/dL (65-110); Potassium 3.2 mmol/L (3.4-5.0); Sodium 143 mmol/L (137-145)
[2021-07-26] MEDS: LEVOTHYROXINE SODIUM 112 MCG TABLET PO (06:25)
[2021-07-26 06:38] LABS: Glucose Point of Care 75 mg/dl (65-105)
[2021-07-26 07:55] LABS: Glucose Point of Care 83 mg/dl (65-105)
[2021-07-26 09:02] LABS: Magnesium 1.8 mg/dL (1.6-2.3)
[2021-07-26] MEDS: APIXABAN 2.5 MG TABLET PO ×2 (09:18→16:00)
[2021-07-26] MEDS: lamoTRIgine 100 MG TABLET PO (09:18)
[2021-07-26] MEDS: PRAVASTATIN SODIUM 20 MG TABLET 40 MG PO (09:19)
[2021-07-26] MEDS: PANTOPRAZOLE 40 MG TABLET PO (09:19)
[2021-07-26] MEDS: VALPROIC ACID 250 MG CAPSULE PO ×2 (09:20→20:20)
[2021-07-26] MEDS: SERTRALINE HCL 50 MG TABLET PO (09:20)
[2021-07-26] MEDS: POTASSIUM CHLORIDE 20 MEQ TABLET 40 MEQ PO (09:21)
[2021-07-26] MEDS: ENOXAPARIN 40 MG/0.4 ML SYRINGE SUB-Q (09:25)
[2021-07-26 09:30] VITALS: PULSE 64; RESP 20; O2SAT 98
[2021-07-26 12:27] LABS: Glucose Point of Care 115 mg/dl (65-105)
--- NOTE | 2021-07-26 12:44 | PM.IMPN ---
Progress Note: A&P Assessment and Plan (1) Altered mental status: Qualifiers: Altered mental status type: unspecified Qualified Code(s): R41.82 - Altered mental status, unspecified Code(s): R41.82 - Altered mental status, unspecified Status: Acute Assessment and Plan: Patient brought in by for increased confusion, combativeness and frequent falls. No signs of acute infection with her urinalysis. Her white blood cell count and differential is completely normal. CT Chest/Abd/Pelvis which showed No acute abnormality of the chest, abdomen or pelvis. ABG was completely normal. Maybe associated with Fungal Infection vs advanced Alzheimer's disease. Will continue on home medications and work on placement and work with physical occupational therapy. Finding issues with placement due to Alzheimer's and combativeness. We are working on possible transfer to [facility] for further medication adjustments. At this time she is medically stable for discharge. We need a COVID PCR swab before she can be excepted and weaning bed availability. Continue monitoring. (2) UTI (urinary tract infection): Code(s): N39.0 - Urinary tract infection, site not specified Status: Acute Assessment and Plan: Urine Culture grew 50,000-100,000 Kassie Tropicalis. Started on IV Diflucan for fungal UTI Day #3 Monitoring QTc length went from 361 to 440. Will recheck QTc length. Blood cultures which shows no growth at this time. Continue monitoring (3) Left arm swelling: Code(s): M79.89 - Other specified soft tissue disorders Status: Acute Assessment and Plan: Patient has left arm swelling at this time. Looks edematous like it is from an infiltrated IV. IV was taken out at this time and fluids were discontinued. Patient has been on DVT prophylaxis so blood clot to her left arm is less likely. Like deep tendon edema from IV fluids Ativan running into her left arm IV (4) Frequent falls: Code(s): R29.6 - Repeated falls Status: Acute Assessment and Plan: Working with PT/OT. No signs of any acute trauma, no complaints of pain, moving all extremities. (5) Hypokalemia: Code(s): E87.6 - Hypokalemia Status: Acute Assessment and Plan: Hypokalemia at 3.2. Will give p.o. potassium 40 mEq. Mag slightly low 1.8. Will replenish and check in the morning. (6) Alzheimer's dementia: Code(s): G30.9 - Alzheimer's disease, unspecified; F02.80 - Dementia in other diseases classified elsewhere without behavioral disturbance Status: Acute Assessment and Plan: Will continue her home medications. She will need to follow-up with her neurologist at [facility] after discharge. (7) Hypothyroidism: Code(s): E03.9 - Hypothyroidism, unspecified Status: Acute Assessment and Plan: TSH when she came in was 84. Repeat today was 59 with normal free T4 and pending T3 reflux. Patient's states her levothyroxine was recently increased from 75 mg to 112 mg. states she has not missed any doses. Will continue this medication over follow-up with primary care provider for repeat TSH testing as outpatient. (8) Current use of [facility] anticoagulation: Code(s): Z79.01 - salvage determiner (current) use of anticoagulants Status: Acute Assessment and Plan: At this time we will continue Eliquis 2.5 mg. Will talk with the more about fall risk versus stroke risk (9) Seizure: Code(s): R56.9 - Unspecified convulsio
--- NOTE | 2021-07-26 12:58 | ECG_ITS ---
Measurements Intervals [place] Rate: 69 P: 47 OH: 167 QRS: -43 QRSD: 90 T: -19 QT: 402 QTc: 432 Interpretive Statements SINUS RHYTHM DELAYED PRECORDIAL R/S TRANSITION BORDERLINE T WAVE ABNORMALITY- INFERIOR LEADS BASELINE ARTIFACT- II, III, AVF, V1-V3 BORDERLINE ECG Electronically Signed On 07-26-2021 14:52:25 CDT by Ambrocio Nicole D.O.
[2021-07-26 14:40] VITALS: BP 138/63; PULSE 71; RESP 16; TEMP 36.8; O2SAT 100
[2021-07-26] MEDS: FLUCONAZOLE 100 MG TABLET PO (16:00)
--- NOTE | 2021-07-26 16:41 | PM.DS ---
DS: Admitting Diagnosis Discharge Date 07/26/21 Admitting Diagnosis AMS DS: Discharge Diagnosis Discharge Diagnosis (1) Altered mental status: Qualifiers: Altered mental status type: unspecified Qualified Code(s): R41.82 - Altered mental status, unspecified Code(s): R41.82 - Altered mental status, unspecified Status: Acute Assessment and Plan: This is a 76 year old woman with history of Alzheimer's Dementia who sees Dr. Donna Dubose Neurologist at [facility], who presented to the ER with complaints of frequent falls and confusion and her can no longer take care of her at home. The patient has been having dizziness, feeling off balance and about 6 falls in the last 48 hours prior to arrival. The patient has also been more combative with the patient's and has not been sleeping well for about 1 week. The patient saw her neurologist at [facility] on Monday07/19/21 and started her olanzapine which they did not grape picker from the pharmacy yet and increased her dose of Ativan. Initial vitals showed BP 111/77, HR 74, afebrile, normal O2 on room air. Initial labs showed slight normocytic anemia Hgb 11.7. Hypokalemia at 2.9. normal Cr, slight elevation of BUN at 21. TSH elevated at 84, normal free T4. No signs of acute infection with her urinalysis. CT Chest/Abd/Pelvis which showed No acute abnormality of the chest, abdomen or pelvis. ABG was completely normal. The patient was admitted into the hospital to look for placement. Urine culture grew 50,000-100,000 Kassie Tropicalis and received 3 days of treatment and was discharged on 2 days of oral treatment. QTc length was being monitored and stable. No growth of blood cultures. Maybe associated with Fungal Infection vs advanced Alzheimer's disease. She was accepted to [facility] for further medication adjustments. At this time she is medically stable for discharge. The patient has been having some issues with hypoglycemia. She has been requiring glucose injections to raise her glucose from 50 to The 100s. She has not been eating or drinking very much at all. We have her on IV dextrose/LR to help with her levels. Cortisol was checked and was on the low side at 5.79. ACTH level is low side of normal at 6. Could have Secondary Adrenal insufficiency vs low labs secondary to high TSH. Will Fax lab results to Dr. Thorne the patients PCP for further evaluation and management. Patient may need a ACTH stimulation testing. (2) UTI (urinary tract infection): Code(s): N39.0 - Urinary tract infection, site not specified Status: Acute Assessment and Plan: Urine Culture grew Started on IV Diflucan for fungal UTI Day #3. Will treat for 2 more days. (3) Left arm swelling: Code(s): M79.89 - Other specified soft tissue disorders Status: Acute Assessment and Plan: Patient has left arm swelling at this time. Looks edematous like it is from an infiltrated IV. IV was taken out at this time and fluids were discontinued. Patient has been on DVT prophylaxis so blood clot to her left arm is less likely. Like deep tendon edema from IV fluids. (4) Frequent falls: Code(s): R29.6 - Repeated falls Status: Acute Assessment and Plan: Working with PT/OT. No signs of any acute trauma, no complaints of pain, moving all extremities. (5) Hypokalemia: Code(s): E87.6 - Hypokalemia Status: Acute Assessment and Plan: Stable. (6) Alzheimer's dementia: Code(s): G30.9 - Alzheimer's disease, unspecified; F02.80 - Dementia in other diseases classified elsewhere without behavioral disturbance Status: Acute Assessment and Plan: Kevin
[2021-07-26 17:10] LABS: Glucose Point of Care 95 mg/dl (65-105)
--- NOTE | 2021-07-26 20:31 | PC.NURSE ---
2030 Entered room to assess pt and administer medication. Pt let me take her blood sugar but afterwards would not let me touch her. Pt was slapping at me telling me to leave her alone. Attempted to give the pt her medication crushed in applesauce but she refused and attempted to hit me again. Pt to be discharged tonight to [facility].
[2021-07-26 22:00] VITALS: BP 134/77; PULSE 84; RESP 16; TEMP 36.4; O2SAT 99
[2021-07-26 22:39] LABS: Glucose Point of Care 74 mg/dl (65-105)
[2021-07-29 02:44] LABS: Adrenocorticotropic Hormone 6 pg/mL (6-50)
--- NOTE | 2021-07-29 09:28 | PC.NURSE ---
ACTH is 6.
--- NOTE | 2021-08-03 08:46 | PC.NURSE ---
Faxed TSH, T4 T3, Cortisol and ACTH to Dr. Thorne's office.
== END 2021-07-26 23:25 | DRG 759 ==
LOC: ANHED 07-22 01:30 → ANH2MED 07-22 07:05
PROVIDERS: Physician Assistant; Admitting Provider Internal Medicine; Emergency Provider Emergency Medicine; PCP Internal Medicine; Visit Provider Family Medicine
DX: B37.49 Other urogenital candidiasis (principal); E87.6 Hypokalemia; Z91.14 Patient's other noncompliance with medication regimen; R29.6 Repeated falls; Z20.822 Contact with and (suspected) exposure to COVID-19; G30.9 Alzheimer's disease, unspecified; F02.80 Dementia in other diseases classified elsewhere, unspecified severity, without behavioral disturbance, psychotic disturbance, mood disturbance, and anxiety; F41.8 Other specified anxiety disorders; R56.9 Unspecified convulsions; K21.9 Gastro-esophageal reflux disease without esophagitis; R22.32 Localized swelling, mass and lump, left upper limb; I10 Essential (primary) hypertension; E16.2 Hypoglycemia, unspecified; E78.5 Hyperlipidemia, unspecified; E03.9 Hypothyroidism, unspecified; M19.90 Unspecified osteoarthritis, unspecified site; Z96.653 Presence of artificial knee joint, bilateral; Z86.73 Personal history of transient ischemic attack (TIA), and cerebral infarction without residual deficits; Z86.711 Personal history of pulmonary embolism; Z86.718 Personal history of other venous thrombosis and embolism; Z90.49 Acquired absence of other specified parts of digestive tract; Z90.710 Acquired absence of both cervix and uterus; Z79.01 Long term (current) use of anticoagulants
CPT/HCPCS: 36415; 36600; 51701; 70450; 71250; 74176; 80048; 80053; 80164; 81001; 82024; 82375; 82533; 82607; 82746; 82805; 82948; 83050; 83735; 84132; 84439; 84443; 84480; 85025; 85027; 86140; 87040; 87086; 87088; 87106; 93005; 96361; 96365; 96366; 96367; 96372; 96375; 96376; 97110; 97161; 97165; 97530; 99285; A9270; C9803; G0378; J0696; J1450; J1650; J3475; J7121; U0003; U0005